=== PATIENT | female | born 1975 | race Caucasian/White ===

== ENCOUNTER 2016-12-14 11:00 | Outpatient (RCR) | payer BC ==
--- NOTE | 2016-12-13 14:16 | Diagnostic Imaging Report ---
KUB. INDICATION: Stones. COMPARISON: 03/02/2016. FINDINGS: There are surgical clips in the upper right abdomen. Moderate amount of fecal material is seen in the right and transverse colon in particular. No definite stone seen along the urinary tract area. IMPRESSION: No definite stone identified. Dictated by: Dictated on workstation # [id number]
[~2016-12-14 11:00] MED LIST: AC500T PO; ACHYD1T PO; ADV1DS; ALBU17AE23 IH; AMOX-355 PO; BUDE6HFA IH; CEPH-507 PO; DCS100C PO; DOCU100C37 PO; FAMO20TA5 PO; FLUT16SP22 NS; HYDR-3720 PO; IBP800T PO; IBUP-1780 PO; MNTL10T; MNTL10T PO; NITR-65 PO; NITR100C3 PO; ONDA-43 PO; ONDA8TAB6 PO; ONDN4T PO; OXYC-465 PO; PHEN-640 PO; PNV1CAPS13 PO; PRD10T PO; PREN-93 PO; SULF1TAB35 PO; TAMS0.4C98 PO
[2016-12-18 20:40] LABS: STONE RISK AMMONIUM 26 mEq/24hr (14-62); STONE RISK BRUSHITE 3.43 (< 2.00); STONE RISK CA OXALATE 1.14 (< 2.00); STONE RISK CALCIUM 167 mg/day (< 250); STONE RISK CITRATE 747 mg/day (> 320); STONE RISK CREATININE 2158 mg/day (600-1800); STONE RISK MAGNESIUM 94 mg/day (> 60); STONE RISK OXALATE 49 mg/day (< 45); STONE RISK PHOSPHOROUS 1801 mg/day (< 1100); STONE RISK POTASSIUM 140 mEq/24hr (19-135); STONE RISK SODIUM 309 mEq/24hr (< 200); STONE RISK SODIUM URATES 7.56 (< 2.00); STONE RISK STRUVITE 9.15 (< 75.00); STONE RISK SULFITE 33 mmol/day (< 30); STONE RISK TOTAL VOLUME 1.84 L/day (> 2.00); STONE RISK URIC ACID 1075 mg/day (< 700); STONE RISK URIC ACID SAT 0.28 (< 2.00)
== END 2017-03-13 | disposition home or self-care (01) ==
LOC: LAB 11:00
PROVIDERS: ATTEND Urology
DX: N20.9 Urinary calculus, unspecified (principal)
CPT/HCPCS: 36415; 74000; 82140; 82340; 82507; 82570; 83735; 83945; 83986; 84105; 84133; 84300; 84392; 84560

== ENCOUNTER 2017-06-18 19:23 | Emergency (ER) | payer BC ==
[~2017-06-18] VITALS: Ht 170.2 cm; Wt 88.6 kg
--- NOTE | 2017-06-18 20:21 | ED Integumentary General ---
General Chief Complaint: Bite-Animal/Human/Insect Stated Complaint: SPIDER BITE Nursing Triage Note: pt states she was camping and noticed pain on her right side of her neck. and she noticed it was a spider that bite her approx. 1700 today. Source: patient Exam Limitations: no limitations History of Present Illness Time seen by provider: 20:08 Initial Comments Here with complaint of spider bite to the right side of the lower neck ST only. She did bring the spider along with her. Denies other injuries. States that she thought that she got stung by a wasp because of the pain. She has not applied anything local and has not taken anything for the pain. This occurred approximately 3 hours ago. Timing/Duration: this evening Severity: moderate Location: torso Possible Cause: insect bite (spider) Associated Symptoms: edema, swelling/mass/lumps Allergies and Home Medications Allergies Coded Allergies: NKANo Known Allergies (Verified Allergy, Unknown, 09/11/13) Home Medications Nitrofurantoin Monohyd/M-Cryst 100 Mg Capsule, 1 TAB PO BID, #14 Prescribed by: FRANKIE BEAL on 02/17/16 1027 Phenazopyridine HCl 200 Mg Tablet, 1 TAB PO TID PRN for PAIN, #21 Prescribed by: FRANKIE BEAL on 02/17/16 1027 Tamsulosin HCl 0.4 Mg Cap, 0.4 MG PO DAILY, #14 Prescribed by: FRANKIE BEAL on 02/17/16 1027 Constitutional: see HPI, No chills, No fever EENTM: no symptoms reported Respiratory: no symptoms reported Cardiovascular: no symptoms reported Gastrointestinal: no symptoms reported Skin: see HPI, change in color, lesions Past Fbdwwoz-Yyzadu-Yekgvl Hx Patient Social History Alcohol Use: Denies Use Recreational Drug Use: No Smoking Status: Never a Smoker 2nd Hand Smoke Exposure: No Recent Foreign Travel: No Contact w/Someone Who Travel: No Recent Infectious Disease Expo: No Recent Hopitalizations: No Immunizations Up To Date Tetanus Booster (TDap): Less than 5yrs Date of Pneumonia Vaccine: Aug 04, 2011 Date of Influenza Vaccine: Sep 28, 2015 Seasonal Allergies Seasonal Allergies: No Surgeries HX Surgeries: Yes (GALLBLADDER REMOVED 2006) Surgeries: Gallbladder Respiratory Hx Respiratory Disorders: Yes Respiratory Disorders: Asthma Cardiovascular Hx Cardiac Disorders: No Neurological Hx Neurological Disorders: No Reproductive System Hx Reproductive Disorders: No Sexually Transmitted Disease: No HIV/AIDS: No Genitourinary Hx Genitourinary Disorders: Yes Genitourinary Disorders: Kidney Stones Gastrointestinal Hx Gastrointestinal Disorders: No Musculoskeletal Hx Musculoskeletal Disorders: No Endocrine Hx Endocrine Disorders: No HEENT HX ENT Disorders: Yes (sesonal allergies, GLASSES) Cancer Hx Cancer: No Psychosocial Hx Psychiatric Problems: No Integumentary HX Skin/Integumentary Disorder: No Blood Transfusions Hx Blood Disorders: No Adverse Reaction to a Blood Tr: No Reviewed Nursing Assessment Reviewed/Agree w Nursing PMH: Yes Family Medical History Family Medial History: Cancer 19 MOTHER Family history: Diabetes mellitus 19 FATHER G8 SISTER Physical Exam Vital Signs Vital Sign - Last 12Hours 06/18/17 20:06 Temp 98.2 Pulse 108 Resp 18 B/P (MAP) 155/89 Pulse Ox 100 O2 Delivery Room Air Capillary Refill : Less Than 3 Seconds General Appearance: WD/WN, no apparent distress Neck: full range of motion, supple Cardiovascular: regular rate, rhythm, no murmur Respiratory: lungs clear, normal breath sounds (her vital signs are all normal. ) Skin: normal color, warm/dry Skin Problem Character: erythema, warm, other (base of the right side of neck posteriorly with a 1 x 2 cm area of induration with a central puncture type wound that is very small.) Progress/Results/Core Measures Results/Orders Vital Signs/I&O Vital Sign - Last 12Hours 06/18/17 20:06 Temp 98.2 Pulse 108 Resp 18 B/P (MAP) 155/89 Pulse Ox 100 O2 Delivery Room Air Blood Pressure Mean: 111 Progress Note : Progress Note Seen and evaluated. Ice pack given. Patient declined pain medicine otherwise. Discharged home with return precautions. Patient verbalize understanding instructions and agreement with plan. Departure Impression Impression: Primary Impression: Spider bite wound Qualified Codes: T63.304A - Toxic effect of unspecified spider venom, undetermined, initial encounter Disposition: HOME, SELF-CARE Condition: Improved Departure-Patient Inst. Decision time for Depature: 20:19 Referrals: MARY SIMENTAL MD (PCP/Family) Primary Care Physician Patient Instructions: Spider Bites Add. Discharge Instructions: All discharge instructions reviewed with patient and/or family. Voiced understanding. You may use hydrocortisone cream over the wound twice daily for the next 2 or 3 days. You may use antibiotic ointment plus pain relief over the wound twice daily for the next few days and then as needed. Use ice packs to affected area to reduce swelling. You may take ibuprofen 800 mg every 8 hours as needed for pain. You may take Tylenol 1000 mg every 8 hours as needed for pain. You may take Benadryl 25 mg every 6 hours as needed for itching or swelling. Follow-up with your Dr. in a few days for recheck. Return for worse pain, fever, vomiting , weakness, breathing problems or other concerns as needed. NAGI WILLIAMSON MD Jun 18, 2017 20:21
[2017-06-18 20:31] VITALS: BP 155/89
== END 2017-06-18 20:31 | disposition home or self-care (01) ==
LOC: EDUNIT# 19:23 → ER 19:26
DX: S10.86XA Insect bite of other specified part of neck, initial encounter (principal); J45.909 Unspecified asthma, uncomplicated; Z90.49 Acquired absence of other specified parts of digestive tract; Z87.442 Personal history of urinary calculi; W57.XXXA Bitten or stung by nonvenomous insect and other nonvenomous arthropods, initial encounter
CPT/HCPCS: 99283

== ENCOUNTER → 2017-12-26 | Outpatient (CLI) | payer BC ==
--- NOTE | 2017-12-26 11:03 | Diagnostic Imaging Report ---
INDICATION: History of kidney stones. TIME OF EXAM: 11:08 a.m. Correlation is made with prior study from 12/13/2016. Surgical clips of right upper quadrant are again noted. The bowel gas pattern is nonobstructed. No definite radiopaque urinary tract calculi are detected. IMPRESSION: Stable abdominal radiographs. No definite radiopaque urinary tract calculi are identified. Dictated by: Dictated on workstation # [id number]
== END ==
LOC: RAD 10:40
PROVIDERS: ATTEND Urology
DX: Z09 Encounter for follow-up examination after completed treatment for conditions other than malignant neoplasm (principal); Z87.442 Personal history of urinary calculi
CPT/HCPCS: 74018

== ENCOUNTER → 2017-12-26 | Outpatient (CLI) | payer BC ==
--- NOTE | 2017-12-26 14:16 | Diagnostic Imaging Report ---
Indication: Routine screening. No prior mammograms are available for comparison. This is a baseline study. The current study was also evaluated with a Computer Aided Detection (CAD) system. Both breasts are primarily involutional. There is a focal density in the superior right breast at mid to posterior depth. Additional views are recommended. Left breast is unremarkable. There are benign calcifications bilaterally. Axillae are unremarkable. IMPRESSION: BI-RADS zero Right breast density. Additional views including spot compression and ML views are recommended for further evaluation. ACR BI-RADS Category 0: Incomplete. (Needs additional imaging evaluation). Result letter will be mailed to the patient. Note: At least 10% of breast cancer is not imaged by mammography. Dictated by: Dictated on workstation # [id number]
== END ==
LOC: RAD 10:33
PROVIDERS: ATTEND Obstetrics & Gynecology
DX: Z12.31 Encounter for screening mammogram for malignant neoplasm of breast (principal)
CPT/HCPCS: 77067

== ENCOUNTER 2017-12-27 15:30 | Outpatient (RCR) | payer BC | END 2018-03-26 | disposition home or self-care (01) | LOC: LAB 15:30 | PROVIDERS: ATTEND Urology | DX: Z09 Encounter for follow-up examination after completed treatment for conditions other than malignant neoplasm (principal); Z87.442 Personal history of urinary calculi | CPT/HCPCS: 36415; 82140; 82340; 82507; 82570; 83735; 83945; 83986; 84105; 84133; 84300; 84392; 84560 ==

== ENCOUNTER → 2018-01-02 | Outpatient (CLI) | payer BC ==
--- NOTE | 2018-01-02 20:38 | Diagnostic Imaging Report ---
EXAMINATION: Unilateral diagnostic right mammogram. The current study was also evaluated with a Computer Aided Detection (CAD) system. INDICATION: Abnormal screening mammogram. FINDINGS: The recent screening mammogram of 12/26/2017 noted a small focal density in the superior aspect of the right breast in the 12 o'clock position at nmk-hq-oteyoezcm depth. Compression and rolled views of this area as well as a true lateral view are obtained. This density seems to persist. In reviewing the tomographic images, there is seem to be two small ( 2-3 MM) densities in this region. These densities have a fairly smooth margin and I suspect that they are benign. Even so, I would recommend that ultrasound be performed for further study. IMPRESSION: Ultrasound will be recommended for further evaluation of the small density in the 12 o'clock position of the right breast. ACR BI-RADS Category 0: Incomplete. (Needs additional imaging evaluation). Result letter will be mailed to the patient. Note: At least 10% of breast cancer is not imaged by mammography. Dictated by: Dictated on workstation # [id number]
--- NOTE | 2018-01-02 20:42 | Diagnostic Imaging Report ---
EXAMINATION: Ultrasound of the right breast, limited. INDICATION: Abnormal mammogram. FINDINGS: The screening mammogram performed on 12/26/2017 noted a small roughly 3 mm focal density in the 12 o'clock position of the right breast. The tomographic images indicated that there were two small (2-3 MM) benign-appearing densities in this region. This finding seemed to persist on the additional mammographic views performed prior to this study. These densities have a generally benign mammographic appearance. On this exam, there is no discrete solid or cystic mass evident in the right breast to correspond to the finding of the mammogram. I do suspect that the mammographic finding is a benign process. Even so, I would recommend that a short-term (six-month) follow-up mammogram of the right breast be obtained for continued evaluation. IMPRESSION: There is no solid mass to suggest malignancy. Recommendations as above. ACR BI-RADS Category 3: Probably benign findings. Dictated by: Dictated on workstation # [id number]
== END ==
LOC: RAD 13:06
PROVIDERS: ATTEND Obstetrics & Gynecology
DX: R92.2 Inconclusive mammogram (principal)

== ENCOUNTER 2018-08-26 13:41 | Outpatient (CLI) | payer BC ==
[~2018-08-26] VITALS: Ht 170.2 cm; Wt 99.4 kg
[2018-08-26] MEDS ORDERED: FLU QUADRIvalent (5+ YOA) 2018-2019 (AFLURIA) 0.5 ML IM ONE (14:45)
[2018-08-26] MEDS ORDERED: LACTATED RINGERS 1,000 ML IV ONE (16:06)
[2018-08-26] MEDS ORDERED: LACTATED RINGERS 1,000 ML IV SCH (17:00)
[2018-08-26 17:14] LABS: BILIRUBIN,URINE NEGATIVE (NEGATIVE); CLARITY,URINE CLEAR; COLOR,URINE YELLOW; GLUCOSE, URINE (UA) NEGATIVE (NEGATIVE); KETONES,URINE NEGATIVE (NEGATIVE); LEUKOCYTE ESTERASE ,URINE NEGATIVE (NEGATIVE); NITRITE,URINE NEGATIVE (NEGATIVE); PH,URINE 7 (5-9); PROTEIN,URINE NEGATIVE (NEGATIVE); UROBILINOGEN,URINE NORMAL (NORMAL)
[2018-08-26 17:20] LABS: BACTERIA,URINE NEGATIVE /HPF
[2018-08-26 17:32] VITALS: BP 133/74
--- NOTE | 2018-08-28 20:52 | Physician Query-Final Dx ---
MAHI TORREZ 08/28/182051: Clinic Account Progress/Dx Physician Query: Please give diagnosis Please provide diagnosis and weeks of gestation. Date of Service Aug 26, 2018 at 13:41 ADAN DÍAZ MD 08/29/18 0739: Clinic Account Progress/Dx DIAGNOSIS: Diagnosis 32 weeks gestation with false labor MAHI TORREZ Aug 28, 2018 20:52 ADAN DÍAZ MD Aug 29, 2018 07:39
== END 2018-08-26 18:45 | disposition home or self-care (01) ==
LOC: WSo 13:41 → LDRP 13:58 → WSo 18:45
PROVIDERS: ATTEND Obstetrics & Gynecology
DX: O47.03 False labor before 37 completed weeks of gestation, third trimester (principal); Z3A.32 32 weeks gestation of pregnancy
CPT/HCPCS: 81000

== ENCOUNTER 2018-09-20 10:42 | Inpatient (IN) | payer BC ==
[~2018-09-20] VITALS: Ht 170.2 cm; Wt 99.1 kg
[2018-09-20 10:36] VITALS: BP 122/87
--- OUTSIDE RECORDS SUMMARY | 2018-09-20 10:47 | XMS REPORT ---
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 Name Role Phone SYED MTZ Unavailable PROBLEMS Unknown Problems ALLERGIES No Known Allergies ENCOUNTERS Encounter Location Date Diagnosis [facility] [id number] [id number] Feb, Dental caries K02.9 [facility] [id number] [id number] Feb, Dental examination Z01.20 IMMUNIZATIONS No Known Immunizations SOCIAL HISTORY Never Assessed REASON FOR VISIT TIFFANY PLAN OF CARE Activity Details Follow Up prn Reason:Extract # 5 # 6 hr needed VITAL SIGNS Blood pressure systolic 148 mmHg 2018-03-14 Blood pressure diastolic 80 mmHg 2018-03-14 MEDICATIONS Medication Instructions Dosage Frequency Start Date End Date Duration Status tylenol Active Multi Complete Active Vitamin D-3 Active Augmentin Active RESULTS No Results PROCEDURES Procedure Date Ordered Result Body Site LTD ORAL EVALUATION - PROBLEM FOCUS March 14, 2018 INTRAORL-PERIAPICAL 1 FILM [id number] March 14, 2018 INSTRUCTIONS MEDICATIONS ADMINISTERED No Known Medications MEDICAL (GENERAL) HISTORY Type Description Date Medical History Pneumonia Medical History Bronchitis Medical History Asthma Surgical History Kidney stones 2016 Surgical History 3 C-Sections /2015 Surgical History gallbladder 2007
--- OUTSIDE RECORDS SUMMARY | 2018-09-20 10:47 | XMS REPORT ---
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 Name Role Phone SYED MTZ Unavailable PROBLEMS Unknown Problems ALLERGIES No Known Allergies ENCOUNTERS Encounter Location Date Diagnosis [facility] [id number] [id number] Feb, Dental caries K02.9 [facility] [id number] [id number] Feb, Dental examination Z01.20 IMMUNIZATIONS No Known Immunizations SOCIAL HISTORY Never Assessed REASON FOR VISIT 1 wk 1 hr te per dds PLAN OF CARE Activity Details Follow Up prn Reason:Hygiene, OZ VITAL SIGNS Blood pressure systolic 148 mmHg 2018-03-24 Blood pressure diastolic 82 mmHg 2018-03-24 MEDICATIONS Medication Instructions Dosage Frequency Start Date End Date Duration Status Vitamin D-3 Active tylenol Not-Taking Multi Complete Active Augmentin Not-Taking RESULTS No Results PROCEDURES Procedure Date Ordered Result Body Site EXTRAC ERUPTED TOOTH/EXPOSED ROOT March 24, 2018 EXTRAC ERUPTED TOOTH/EXPOSED ROOT March 24, 2018 INSTRUCTIONS MEDICATIONS ADMINISTERED No Known Medications MEDICAL (GENERAL) HISTORY Type Description Date Medical History Pneumonia Medical History Bronchitis Medical History Asthma Surgical History Kidney stones 2016 Surgical History 3 C-Sections 2011/2013/2015 Surgical History gallbladder 2007
--- OUTSIDE RECORDS SUMMARY | 2018-09-20 10:49 | XMS REPORT | Continuity of Care Document ---
Author Author [facility] Organization [facility] Address Unknown Phone Unavailable Allergies Active Description Code Type Severity Reaction Onset Reported/Identified Relationship to Patient Clinical Status Yes NKANo Known Allergies NKA Miscellaneous Allergy Unknown N/A 09/11/2013 Medications There is no data. Problems Date Dx Coded Attending Type Code Diagnosis Diagnosed By 06/21/2011 Ot 599.0 URIN TRACT INFECTION NOS 06/21/2011 Ot 789.00 ABDOMINAL PAIN, UNSPECIFIED SITE 07/24/2011 Ot 249.00 SEC DIABETES MELLITUS W/OUT MENTION COMP 07/24/2011 Ot 278.00 OBESITY, NOS 07/24/2011 Ot 480.9 VIRAL PNEUMONIA NOS 07/24/2011 Ot 493.92 ASTHMA, UNSPECIFIED, W (ACUTE) EXACERBAT 07/24/2011 Ot 790.6 ABN BLOOD CHEMISTRY NEC 07/24/2011 Ot E932.0 ADV EFF CORTICOSTEROIDS 07/24/2011 Ot V85.30 BODY MASS INDEX 30.0-30.9, ADULT 11/19/2011 Ot 558.9 NONINF GASTROENTERIT NEC 11/19/2011 Ot 643.03 MILD HYPEREMESIS-ANTEPAR 11/19/2011 Ot 646.83 PREG COMPL NEC-ANTEPART 12/28/2011 Ot 462 ACUTE PHARYNGITIS 12/28/2011 Ot 519.11 ACUTE BRONCHOSPASM 12/28/2011 Ot 643.03 MILD HYPEREMESIS-ANTEPAR 12/28/2011 Ot 648.83 ABN GLUCOSE- ANTEPARTUM 12/28/2011 Ot 648.93 OTH CURR COND-ANTEPARTUM 12/28/2011 Ot 783.21 LOSS OF WEIGHT 12/28/2011 Ot 786.09 RESPIRATORY ABNORM NEC 03/31/2012 Ot 276.51 DEHYDRATION 03/31/2012 Ot 519.11 ACUTE BRONCHOSPASM 03/31/2012 Ot 643.23 LATE VOMIT PREG-ANTEPART 03/31/2012 Ot 648.93 OTH CURR COND-ANTEPARTUM 03/31/2012 Ot 780.4 DIZZINESS AND GIDDINESS 03/31/2012 Ot 783.21 LOSS OF WEIGHT 03/31/2012 Ot 787.91 DIARRHEA 06/21/2012 Ot 643.23 LATE VOMIT PREG-ANTEPART 07/06/2012 Ot 285.1 AC POSTHEMORRHAG ANEMIA 07/06/2012 Ot 648.22 ANEMIA- DELIVERED W P/P 07/06/2012 Ot 653.41 FETOPELV DISPROPOR-DELIV 07/06/2012 Ot 660.11 BONY PELV OBSTRUCT-DELIV 07/06/2012 Ot 660.31 PERSIST OCCIPTPOST-DELIV 07/06/2012 Ot 661.21 UTERINE INERT NEC-DELIV 07/06/2012 Ot V27.0 DELIVER- SINGLE LIVEBORN 07/14/2012 Ot 276.51 DEHYDRATION 07/14/2012 Ot 285.1 AC POSTHEMORRHAG ANEMIA 07/14/2012 Ot 300.00 ANXIETY STATE NOS 07/14/2012 Ot 311 DEPRESSIVE DISORDER NEC 07/14/2012 Ot 564.00 UNSPEC CONSTIPATION 07/14/2012 Ot 648.24 ANEMIA- 07/14/2012 Ot 648.44 MENTAL DISORDER-POSTPART 07/14/2012 Ot 648.94 OTH CURR COND- 09/14/2013 ROSA MAURICIO, GREGORIO Mullins Ot 478.19 OTHER DISEASE OF NASAL CAVITY AND SINUSE 09/14/2013 ROSA MAURICIO, GREGORIO Mullins Ot 493.02 EXTRINSIC ASTHMA, W (ACUTE) EXACERBATION 09/14/2013 ROSA MAURICIO, GREGORIO Mullins Ot 530.81 ESOPHAGEAL REFLUX 09/14/2013 ROSA MAURICIO, GREGORIO Mullins Ot 646.83 PREG COMPL NEC-ANTEPART 09/14/2013 ROSA MAURICIO, GREGORIO Mullins Ot 648.93 OTH CURR COND-ANTEPARTUM 01/26/2014 ROSA MAURICIO, GREGORIO Mullins Ot 646.83 PREG COMPL NEC-ANTEPART 01/26/2014 ROSA MAURICIO, GREGORIO Mullins Ot 789.00 ABDOMINAL PAIN, UNSPECIFIED SITE 04/06/2014 ADAN DÍAZ MD Ot 654.21 PREV DELIVRY W/ OR W/O MENT ANT 04/06/2014 ADAN DÍAZ MD Ot 663.21 CORD COMPRESS NEC-DELIV 04/06/2014 ADAN DÍAZ MD Ot 788.20 RETENTION OF URINE NOS 04/06/2014 ADAN DÍAZ MD Ot V06.1 [id number], COMBINED [ 04/06/2014 BRE MAURICIO, ADAN Granados Ot V27.0 DELIVER-SINGLE LIVEBORN 07/31/2015 ROSA MAURICIO, GREGORIO Mullins Ot 640.93 07/31/2015 ROSA MAURICIO, GREGORIO Mullins Ot 649.63 08/13/2015 Ot 649.63 08/13/2015 Ot 649.63 08/13/2015 ROSA MAURICIO, GREGORIO Mullins Ot 641.03 08/13/2015 BRE MAURICIO, ADAN Granados Ot 654.23 08/13/2015 BRE MAURICIO, ADAN Granados Ot V72.63 08/13/2015 BRE MAURICIO, ADAN Granados Ot V72.84 08/13/2015 BRE MAURICIO, ADAN Granados Ot V74.8 08/13/2015 ROSA MAURICIO, GREGORIO Mullins Ot 640.93 08/13/2015 ROSA MAURICIO, GREGORIO Mullins Ot 649.63 08/15/2015 ROSA MAURICIO, GREGORIO Mullins Ot 643.13 HYPEREM W METAB-ANTEPART 08/15/2015 ROSA MAURICIO, GREGORIO Mullins Ot 646.83 PREG COMPL NEC-ANTEPART 08/15/2015 ROSA MAURICIO, GREGORIO Mullins Ot 787.91 DIARRHEA 08/15/2015 ROSA MAURICIO, GREGORIO Mullins Ot 643.13 08/15/2015 ROSA MAURICIO, GREGORIO Mullins Ot 646.83 08/15/2015 ROSA MAURICIO, GREGORIO Mullins Ot 787.91 09/24/2015 Ot Z34.92 09/28/2015 Ot 649.63 09/28/2015 Ot 649.63 09/28/2015 ROSA MAURICIO, GREGORIO Mullins Ot 641.03 09/28/2015 ADAN DÍAZ MD Ot 654.23 09/28/2015 ADAN DÍAZ MD Ot V72.63 09/28/2015 ADAN DÍAZ MD Ot V72.84 09/28/2015 ADAN DÍAZ MD Ot V74.8 09/28/2015 ROSA MAURICIO, GREGORIO Mullins Ot 640.93 09/28/2015 ROSA MAURICIO, GREGORIO Mullins Ot 649.63 09/28/2015 Ot Z34.92 10/07/2015 ROSA MAURICIO, GREGORIO Mullins Ot O28.9 10/15/2015 ROSA MAURICIO, GREGORIO Mullins Ot O28.9 12/02/2015 GREGORIO LEE MD Ot Z36 12/09/2015 Ot 649.63 12/09/2015 Ot 649.63 12/09/2015 GREGORIO LEE MD Ot 641.03 12/09/2015 BRE MAURICIO, ADAN Roberta Ot 654.23 12/09/2015 BRE MAURICIO, ADAN Roberta Ot V72.63 12/09/2015 BRE MAURICIO, ADAN Roberta Ot V72.84 12/09/2015 BRE MAURICIO, ADAN Roberta Ot V74.8 12/09/2015 GREGORIO LEE MD Ot 640.93 12/09/2015 GREGORIO LEE MD Ot 649.63 12/09/2015 Ot Z34.92 12/09/2015 GREGORIO LEE MD Ot O28.9 12/09/2015 GREGORIO LEE MD Ot Z36 12/09/2015 GREGORIO LEE MD Ot N21.1 CALCULUS IN URETHRA 12/09/2015 GREGORIO LEE MD Ot O99.89 OTH DISEASES AND CONDITIONS COMPL PREG/C 12/09/2015 GREGORIO LEE MD Ot Z3A.32 32 WEEKS GESTATION OF 01/23/2016 GREGORIO LEE MD Ot N20.2 CALCULUS OF KIDNEY WITH CALCULUS OF URET 01/23/2016 GREGORIO LEE MD Ot 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, THIRD T 01/23/2016 GREGORIO LEE MD Ot O34.21 MATERNAL CARE FOR SCAR FROM PREVIOUS MARIKA 01/23/2016 GREGORIO LEE MD Ot Z37.0 SINGLE LIVE 01/23/2016 GREGORIO LEE MD Ot Z3A.38 38 WEEKS GESTATION OF 01/28/2016 JOSUÉ MAURICIO, SCOTTIE Bolden Ot N20.1 CALCULUS OF URETER 01/28/2016 SCOTTIE MOSES MD Ot Z11.2 ENCOUNTER FOR SCREENING FOR OTHER BACTER 02/03/2016 GREGORIO LEE MD Ot N20.2 02/03/2016 GREGORIO LEE MD Ot O26.833 02/03/2016 GREGORIO LEE MD Ot O34.21 02/03/2016 GREGORIO LEE MD Ot Z37.0 02/03/2016 GREGORIO LEE MD Ot Z3A.38 02/11/2016 Ot 649.63 02/11/2016 Ot 649.63 02/11/2016 ROSA MAURICIO, GREGORIO Mullins Ot 641.03 02/11/2016 BRE MAURICIO, ADAN G Ot 654.23 02/11/2016 BRE MAURICIO, ADAN Roberta Ot V72.63 02/11/2016 BRE MAURICIO, ADAN Roberta Ot V72.84 02/11/2016 BRE MAURICIO, ADAN Roberta Ot V74.8 02/11/2016 ROSA MAURICIO, GREGORIO Harpreet Ot 640.93 02/11/2016 ROSA MAURICIO, [facility] Ot 649.63 02/11/2016 Ot Z34.92 02/11/2016 ROSA MAURICIO, [facility] Ot O28.9 02/11/2016 ROSA MAURICIO, GREGORIO Mullins Ot Z36 02/11/2016 JOSUÉ MAURICIO, SCOTTIE A Ot N20.2 02/11/2016 JOSUÉ MAURICIO, SCOTTIE Kimi Ot Z01.818 02/12/2016 ROSA MAURICIO, GREGORIO Mullins Ot Z39.1 02/12/2016 JOSUÉ MAURICIO, SCOTTIE A Ot N20.1 02/12/2016 ROSA MAURICIO, GREGORIO Mullins Ot Z39.1 02/12/2016 ROSA MAURICIO, GREGORIO Mullins Ot Z39.1 02/17/2016 JOSUÉ MAURICIO, SCOTTIE A Ot N20.1 CALCULUS OF URETER 02/17/2016 JOSUÉ MAURICIO, SCOTTIE A Ot N20.1 02/17/2016 JOSUÉ MAURICIO, SCOTTIE A Ot Z01.818 02/18/2016 JOSUÉ MAURICIO, SCOTTIE A Ot N20.1 02/25/2016 ROSA MAURICIO, GREGORIO Mullins Ot Z39.1 02/25/2016 JOSUÉ MAURICIO, SCOTTIE A Ot N20.1 03/02/2016 JOSUÉ MAURICIO, SCOTTIE A Ot N20.1 03/17/2016 JOSUÉ MAURICIO, SCOTTIE Bolden Ot N20.1 CALCULUS OF URETER 09/10/2016 Ot 649.63 UTERINE SIZE DATE DISCREPANCY, ANTEPARTU 09/10/2016 Ot 649.63 UTERINE SIZE DATE DISCREPANCY, ANTEPARTU 09/10/2016 ROSA MAURICIO, GREGORIO Mullins Ot 641.03 PLACENTA PREVIA-ANTEPART 09/10/2016 ADAN DÍAZ MD Ot 654.23 PREV DELIVERY, ANTEPARTUM COND 09/10/2016 ADAN DÍAZ MD, Ot V72.63 PRE-PROCEDURAL LABORATORY EXAMINATION 09/10/2016 ADAN DÍAZ MD, Ot V72.84 EXAM PRE-OPERATIVE NOS 09/10/2016 ADAN DÍAZ MD, Ot V74.8 SCREEN-BACTERIAL DIS NEC 09/10/2016 GREGORIO LEE MD Ot 640.93 HEM EARLY PREG-ANTEPART 09/10/2016 GREGORIO LEE MD Ot 649.63 UTERINE SIZE DATE DISCREPANCY, ANTEPARTU 09/10/2016 Ot Z34.92 ENCNTR FOR SUPRVSN OF NORMAL PREG, UNSP, 09/10/2016 GREGORIO LEE MD Ot O28.9 UNSP ABNORMAL FINDINGS ON SCRE 09/10/2016 GREGORIO LEE MD Ot Z36 ENCOUNTER FOR SCREENING OF MOT 09/10/2016 SCOTTIE MOSES MD Ot N20.2 CALCULUS OF KIDNEY WITH CALCULUS OF URET 09/10/2016 SCOTTIE MOSES MD Ot Z01.818 ENCOUNTER FOR OTHER PREPROCEDURAL EXAMIN 09/10/2016 GREGORIO LEE MD Ot Z39.1 ENCOUNTER FOR CARE AND EXAMINATION OF LA 09/10/2016 SCOTTIE MOSES MD Ot N20.1 CALCULUS OF URETER 01/12/2017 SCOTTIE MOSES MD Ot N20.9 URINARY CALCULUS, UNSPECIFIED 03/13/2017 SCOTTIE MOSES MD Ot N20.9 URINARY CALCULUS, UNSPECIFIED 06/18/2017 Ot 649.63 UTERINE SIZE DATE DISCREPANCY, ANTEPARTU 06/18/2017 GREGORIO LEE MD Ot 641.03 PLACENTA PREVIA-ANTEPART 06/18/2017 ADAN DÍAZ MD Ot 654.23 PREV DELIVERY, ANTEPARTUM COND 06/18/2017 ADAN DÍAZ MD, Ot V72.63 PRE-PROCEDURAL LABORATORY EXAMINATION 06/18/2017 ADAN DÍAZ MD, Ot V72.84 EXAM PRE-OPERATIVE NOS 06/18/2017 ADAN DÍAZ MD, Ot V74.8 SCREEN-BACTERIAL DIS NEC 06/18/2017 GREGORIO LEE MD Ot 640.93 HEM EARLY PREG-ANTEPART 06/18/2017 ROSA MAURICIO, GREGORIO Mullins Ot 649.63 UTERINE SIZE DATE DISCREPANCY, ANTEPARTU 06/18/2017 Ot Z34.92 ENCNTR FOR SUPRVSN OF NORMAL PREG, UNSP, 06/18/2017 GREGORIO LEE MD Ot O28.9 UNSP ABNORMAL FINDINGS ON SCRE 06/18/2017 GREGORIO LEE MD Ot Z36 ENCOUNTER FOR SCREENING OF MOT 06/18/2017 SCOTTIE MOSES MD Ot N20.2 CALCULUS OF KIDNEY WITH CALCULUS OF URET 06/18/2017 SCOTTIE MOSES MD Ot Z01.818 ENCOUNTER FOR OTHER PREPROCEDURAL EXAMIN 06/18/2017 GREGORIO LEE MD Ot Z39.1 ENCOUNTER FOR CARE AND EXAMINATION OF LA 06/18/2017 SCOTTIE MOSES MD Ot N20.1 CALCULUS OF URETER 06/18/2017 SCOTTIE MOSES MD Ot N20.1 CALCULUS OF URETER 06/18/2017 SCOTTIE MOSES MD Ot Z01.818 ENCOUNTER FOR OTHER PREPROCEDURAL EXAMIN 06/18/2017 SCOTTIE MOSES MD, Ot N20.1 CALCULUS OF URETER 06/18/2017 CLAY MAURICIO, NAGI Pruitt Ot J45.909 UNSPECIFIED ASTHMA, UNCOMPLICATED 06/18/2017 NAGI WILLIAMSON MD Ot S10.86XA INSECT BITE OF OTHER SPECIFIED PART OF N 06/18/2017 NAGI WILLIAMSON MD Ot W57.XXXA BIT/STUNG BY NONVENOM INSECT OTH NONVE 06/18/2017 NAGI WILLIAMSON MD Ot Z87.442 PERSONAL HISTORY OF URINARY CALCULI 06/18/2017 NAGI WILLIAMSON MD Ot Z90.49 ACQUIRED ABSENCE OF OTHER SPECIFIED PART 06/20/2017 Ot 649.63 UTERINE SIZE DATE DISCREPANCY, ANTEPARTU 06/20/2017 ROSA MAURICIO, GREGORIO Mullins Ot 641.03 PLACENTA PREVIA-ANTEPART 06/20/2017 ADAN DÍAZ MD Ot 654.23 PREV DELIVERY, ANTEPARTUM COND 06/20/2017 ADAN DÍAZ MD Ot V72.63 PRE-PROCEDURAL LABORATORY EXAMINATION 06/20/2017 ADAN DÍAZ MD, Ot V72.84 EXAM PRE-OPERATIVE NOS 06/20/2017 ADAN DÍAZ MD, Ot V74.8 SCREEN-BACTERIAL DIS NEC 06/20/2017 GREGORIO LEE MD Ot 640.93 HEM EARLY PREG-ANTEPART 06/20/2017 GREGORIO LEE MD Ot 649.63 UTERINE SIZE DATE DISCREPANCY, ANTEPARTU 06/20/2017 Ot Z34.92 ENCNTR FOR SUPRVSN OF NORMAL PREG, UNSP, 06/20/2017 GREGORIO LEE MD Ot O28.9 UNSP ABNORMAL FINDINGS ON SCRE 06/20/2017 GREGORIO LEE MD Ot Z36 ENCOUNTER FOR SCREENING OF MOT 06/20/2017 SCOTTIE MOSES MD Ot N20.2 CALCULUS OF KIDNEY WITH CALCULUS OF URET 06/20/2017 SCOTTIE MOSES MD Ot Z01.818 ENCOUNTER FOR OTHER PREPROCEDURAL EXAMIN 06/20/2017 GREGORIO LEE MD Ot Z39.1 ENCOUNTER FOR CARE AND EXAMINATION OF LA 06/20/2017 SCOTTIE MOSES MD Ot N20.1 CALCULUS OF URETER 06/20/2017 SCOTTIE MOSES MD Ot N20.1 CALCULUS OF URETER 06/20/2017 SCOTTIE MOSES MD Ot Z01.818 ENCOUNTER FOR OTHER PREPROCEDURAL EXAMIN 06/20/2017 SCOTTIE MOSES MD Ot N20.1 CALCULUS OF URETER 12/27/2017 SCOTTIE MOSES MD Ot Z09 ENCNTR FOR F/U EXAM AFT TRTMT FOR COND O 12/27/2017 SCOTTIE MOSES MD Ot Z87.442 PERSONAL HISTORY OF URINARY CALCULI 12/27/2017 ADAN DÍAZ MD Ot Z12.31 ENCNTR SCREEN MAMMOGRAM FOR MALIGNANT NE 01/03/2018 ADAN DÍAZ MD Ot R92.2 INCONCLUSIVE MAMMOGRAM 01/03/2018 ADAN DÍAZ MD Ot R92.2 INCONCLUSIVE MAMMOGRAM 01/11/2018 ADAN DÍAZ MD Ot Z12.31 ENCNTR SCREEN MAMMOGRAM FOR MALIGNANT NE 01/11/2018 SCOTTIE MOSES MD Ot Z09 ENCNTR FOR F/U EXAM AFT TRTMT FOR COND O 01/11/2018 SCOTTIE MOSES MD, Ot Z87.442 PERSONAL HISTORY OF URINARY CALCULI 01/11/2018 SCOTTIE MOSES MD, Ot Z87.442 PERSONAL HISTORY OF URINARY CALCULI 01/18/2018 ADAN DÍAZ MD, Ot R92.2 INCONCLUSIVE MAMMOGRAM 01/24/2018 ROSA MAURICIO, GREGORIO Mullins Ot 641.03 PLACENTA PREVIA-ANTEPART 01/24/2018 ADAN DÍAZ MD Ot 654.23 PREV DELIVERY, ANTEPARTUM COND 01/24/2018 ADAN DÍAZ MD, Ot V72.63 PRE-PROCEDURAL LABORATORY EXAMINATION 01/24/2018 ADAN DÍAZ MD, Ot V72.84 EXAM PRE-OPERATIVE NOS 01/24/2018 ADAN DÍAZ MD, Ot V74.8 SCREEN-BACTERIAL DIS NEC 01/24/2018 ROSA MAURICIO, GREGORIO Mullins Ot 640.93 HEM EARLY PREG-ANTEPART 01/24/2018 ROSA MAURICIO, GREGORIO Mullins Ot 649.63 UTERINE SIZE DATE DISCREPANCY, ANTEPARTU 01/24/2018 Ot Z34.92 ENCNTR FOR SUPRVSN OF NORMAL PREG, UNSP, 01/24/2018 ROSA MAURICIO, GREGORIO Mullins Ot O28.9 UNSP ABNORMAL FINDINGS ON SCRE 01/24/2018 ROSA MAURICIO, GREGORIO Mullins Ot Z36 ENCOUNTER FOR SCREENING OF MOT 01/24/2018 SCOTTIE MOSES MD Ot N20.2 CALCULUS OF KIDNEY WITH CALCULUS OF URET 01/24/2018 SCOTTIE MOSES MD Ot Z01.818 ENCOUNTER FOR OTHER PREPROCEDURAL EXAMIN 01/24/2018 GREGORIO LEE MD Ot Z39.1 ENCOUNTER FOR CARE AND EXAMINATION OF LA 01/24/2018 SCOTTIE MOSES MD Ot N20.1 CALCULUS OF URETER 01/24/2018 SCOTTIE MOSES MD, Ot N20.1 CALCULUS OF URETER 01/24/2018 SCOTTIE MOSES MD Ot Z01.818 ENCOUNTER FOR OTHER PREPROCEDURAL EXAMIN 01/24/2018 SCOTTIE MOSES MD Ot N20.1 CALCULUS OF URETER 01/24/2018 ADAN DÍAZ MD, Ot Z12.31 ENCNTR SCREEN MAMMOGRAM FOR MALIGNANT NE 01/24/2018 SCOTTIE MOSES MD Ot Z87.442 PERSONAL HISTORY OF URINARY CALCULI 01/24/2018 SCOTTIE MOSES MD, Ot Z09 ENCNTR FOR F/U EXAM AFT TRTMT FOR COND O 01/24/2018 SCOTTIE MOSES MD, Ot Z87.442 PERSONAL HISTORY OF URINARY CALCULI 01/24/2018 ADAN DÍAZ MD, Ot R92.2 INCONCLUSIVE MAMMOGRAM 01/26/2018 ROSA MAURICIO, GREGORIO Mullins Ot 641.03 PLACENTA PREVIA-ANTEPART 01/26/2018 ADAN DÍAZ MD Ot 654.23 PREV DELIVERY, ANTEPARTUM COND 01/26/2018 ADAN DÍAZ MD, Ot V72.63 PRE-PROCEDURAL LABORATORY EXAMINATION 01/26/2018 ADAN DÍAZ MD, Ot V72.84 EXAM PRE-OPERATIVE NOS 01/26/2018 ADAN DÍAZ MD, Ot V74.8 SCREEN-BACTERIAL DIS NEC 01/26/2018 ROSA MAURICIO, GREGORIO Mullins Ot 640.93 HEM EARLY PREG-ANTEPART 01/26/2018 ROSA MAURICIO, GREGORIO Mullins Ot 649.63 UTERINE SIZE DATE DISCREPANCY, ANTEPARTU 01/26/2018 Ot Z34.92 ENCNTR FOR SUPRVSN OF NORMAL PREG, UNSP, 01/26/2018 ROSA MAURICIO, GREGORIO Mullins Ot O28.9 UNSP ABNORMAL FINDINGS ON SCRE 01/26/2018 ROSA MAURICIO, GREGORIO Mullins Ot Z36 ENCOUNTER FOR SCREENING OF MOT 01/26/2018 SCOTTIE MOSES MD Ot N20.2 CALCULUS OF KIDNEY WITH CALCULUS OF URET 01/26/2018 SCOTTIE MOSES MD Ot Z01.818 ENCOUNTER FOR OTHER PREPROCEDURAL EXAMIN 01/26/2018 GREGORIO LEE MD Ot Z39.1 ENCOUNTER FOR CARE AND EXAMINATION OF LA 01/26/2018 SCOTTIE MOSES MD Ot N20.1 CALCULUS OF URETER 01/26/2018 SCOTTIE MOSES MD Ot N20.1 CALCULUS OF URETER 01/26/2018 SCOTTIE MOSES MD Ot Z01.818 ENCOUNTER FOR OTHER PREPROCEDURAL EXAMIN 01/26/2018 SCOTTIE MOSES MD, Ot N20.1 CALCULUS OF URETER 01/26/2018 ADAN DÍAZ MD Ot Z12.31 ENCNTR SCREEN MAMMOGRAM FOR MALIGNANT NE 01/26/2018 SCOTTIE MOSES MD, Ot Z87.442 PERSONAL HISTORY OF URINARY CALCULI 01/26/2018 SCOTTIE MOSES MD, Ot Z09 ENCNTR FOR F/U EXAM AFT TRTMT FOR COND O 01/26/2018 SCOTTIE MOSES MD, Ot Z87.442 PERSONAL HISTORY OF URINARY CALCULI 01/26/2018 ADAN DÍAZ MD, Ot R92.2 INCONCLUSIVE MAMMOGRAM 01/27/2018 ROSA MAURICIO, GREGORIO Mullins Ot 641.03 PLACENTA PREVIA-ANTEPART 01/27/2018 ADAN DÍAZ MD Ot 654.23 PREV DELIVERY, ANTEPARTUM COND 01/27/2018 ADAN DÍAZ MD Ot V72.63 PRE-PROCEDURAL LABORATORY EXAMINATION 01/27/2018 ADAN DÍAZ MD Ot V72.84 EXAM PRE-OPERATIVE NOS 01/27/2018 ADAN DÍAZ MD Ot V74.8 SCREEN-BACTERIAL DIS NEC 01/27/2018 ROSA MAURICIO, GREGORIO Mullins Ot 640.93 HEM EARLY PREG-ANTEPART 01/27/2018 GREGORIO LEE MD Ot 649.63 UTERINE SIZE DATE DISCREPANCY, ANTEPARTU 01/27/2018 Ot Z34.92 ENCNTR FOR SUPRVSN OF NORMAL PREG, UNSP, 01/27/2018 ROSA MAURICIO, GREGORIO Mullins Ot O28.9 UNSP ABNORMAL FINDINGS ON SCRE 01/27/2018 ROSA MAURICIO, GREGORIO Mullins Ot Z36 ENCOUNTER FOR SCREENING OF MOT 01/27/2018 SCOTTIE MOSES MD Ot N20.2 CALCULUS OF KIDNEY WITH CALCULUS OF URET 01/27/2018 SCOTTIE MOSES MD Ot Z01.818 ENCOUNTER FOR OTHER PREPROCEDURAL EXAMIN 01/27/2018 GREGORIO LEE MD Ot Z39.1 ENCOUNTER FOR CARE AND EXAMINATION OF LA 01/27/2018 SCOTTIE MOSES MD, Ot N20.1 CALCULUS OF URETER 01/27/2018 SCOTTIE MOSES MD, Ot N20.1 CALCULUS OF URETER 01/27/2018 SCOTTIE MOSES MD, Ot Z01.818 ENCOUNTER FOR OTHER PREPROCEDURAL EXAMIN 01/27/2018 SCOTTIE MOSES MD, Ot N20.1 CALCULUS OF URETER 01/27/2018 ADAN DÍAZ MD, Ot Z12.31 ENCNTR SCREEN MAMMOGRAM FOR MALIGNANT NE 01/27/2018 SCOTTIE MOSSE MD, Ot Z87.442 PERSONAL HISTORY OF URINARY CALCULI 01/27/2018 SCOTTIE MOSES MD, Ot Z09 ENCNTR FOR F/U EXAM AFT TRTMT FOR COND O 01/27/2018 SCOTTIE MOSES MD, Ot Z87.442 PERSONAL HISTORY OF URINARY CALCULI 01/27/2018 ADAN DÍAZ MD, Ot R92.2 INCONCLUSIVE MAMMOGRAM 02/25/2018 ROSA MAURICIO, GREGORIO Mullins Ot 641.03 PLACENTA PREVIA-ANTEPART 02/25/2018 ADAN DÍAZ MD Ot 654.23 PREV DELIVERY, ANTEPARTUM COND 02/25/2018 ADAN DÍAZ MD Ot V72.63 PRE-PROCEDURAL LABORATORY EXAMINATION 02/25/2018 ADAN DÍAZ MD, Ot V72.84 EXAM PRE-OPERATIVE NOS 02/25/2018 ADAN DÍAZ MD, Ot V74.8 SCREEN-BACTERIAL DIS NEC 02/25/2018 ROSA MAURICIO, GREGORIO Mullins Ot 640.93 HEM EARLY PREG-ANTEPART 02/25/2018 GREGORIO LEE MD Ot 649.63 UTERINE SIZE DATE DISCREPANCY, ANTEPARTU 02/25/2018 Ot Z34.92 ENCNTR FOR SUPRVSN OF NORMAL PREG, UNSP, 02/25/2018 GREGORIO LEE MD Ot O28.9 UNSP ABNORMAL FINDINGS ON SCRE 02/25/2018 GREGORIO LEE MD Ot Z36 ENCOUNTER FOR SCREENING OF MOT 02/25/2018 SCOTTIE MOSES MD, Ot N20.2 CALCULUS OF KIDNEY WITH CALCULUS OF URET 02/25/2018 SCOTTIE MOSES MD, Ot Z01.818 ENCOUNTER FOR OTHER PREPROCEDURAL EXAMIN 02/25/2018 GREGORIO LEE MD Ot Z39.1 ENCOUNTER FOR CARE AND EXAMINATION OF LA 02/25/2018 SCOTTIE MOSES MD Ot N20.1 CALCULUS OF URETER 02/25/2018 SCOTTIE MOSES MD, Ot N20.1 CALCULUS OF URETER 02/25/2018 SCOTTIE MOSES MD, Ot Z01.818 ENCOUNTER FOR OTHER PREPROCEDURAL EXAMIN 02/25/2018 SCOTTIE MOSES MD, Ot N20.1 CALCULUS OF URETER 02/25/2018 ADAN DÍAZ MD, Ot Z12.31 ENCNTR SCREEN MAMMOGRAM FOR MALIGNANT NE 02/25/2018 SCOTTIE MOSES MD, Ot Z87.442 PERSONAL HISTORY OF URINARY CALCULI 02/25/2018 SCOTTIE MOSES MD Ot Z09 ENCNTR FOR F/U EXAM AFT TRTMT FOR COND O 02/25/2018 SCOTTIE MOSES MD, Ot Z87.442 PERSONAL HISTORY OF URINARY CALCULI 02/25/2018 ADAN DÍAZ MD, Ot R92.2 INCONCLUSIVE MAMMOGRAM 03/26/2018 SCOTTIE MOSES MD Ot Z09 ENCNTR FOR F/U EXAM AFT TRTMT FOR COND O 03/26/2018 SCOTTIE MOSES MD, Ot Z87.442 PERSONAL HISTORY OF URINARY CALCULI 03/27/2018 SCOTTIE MOSES MD Ot Z09 ENCNTR FOR F/U EXAM AFT TRTMT FOR COND O 03/27/2018 SCOTTIE MOSES MD, Ot Z87.442 PERSONAL HISTORY OF URINARY CALCULI 06/10/2018 ROSA MAURICIO, GREGORIO Mullins Ot 641.03 PLACENTA PREVIA-ANTEPART 06/10/2018 ADAN DÍAZ MD Ot 654.23 PREV DELIVERY, ANTEPARTUM COND 06/10/2018 ADAN DÍAZ MD, Ot V72.63 PRE-PROCEDURAL LABORATORY EXAMINATION 06/10/2018 ADAN DÍAZ MD, Ot V72.84 EXAM PRE-OPERATIVE NOS 06/10/2018 ADAN DÍAZ MD, Ot V74.8 SCREEN-BACTERIAL DIS NEC 06/10/2018 ROSA MAURICIO, GREGORIO Mullins Ot 640.93 HEM EARLY PREG-ANTEPART 06/10/2018 GREGORIO LEE MD, Ot 649.63 UTERINE SIZE DATE DISCREPANCY, ANTEPARTU 06/10/2018 Ot Z34.92 ENCNTR FOR SUPRVSN OF NORMAL PREG, UNSP, 06/10/2018 GREGORIO LEE MD Ot O28.9 UNSP ABNORMAL FINDINGS ON SCRE 06/10/2018 GREGORIO LEE MD Ot Z36 ENCOUNTER FOR SCREENING OF MOT 06/10/2018 SCOTTIE MOSES MD Ot N20.2 CALCULUS OF KIDNEY WITH CALCULUS OF URET 06/10/2018 SCOTTIE MOSES MD Ot Z01.818 ENCOUNTER FOR OTHER PREPROCEDURAL EXAMIN 06/10/2018 GREGORIO LEE MD Ot Z39.1 ENCOUNTER FOR CARE AND EXAMINATION OF [place] 06/10/2018 SCOTTIE MOSES MD Ot N20.1 CALCULUS OF URETER 06/10/2018 SCOTTIE MOSES MD, Ot N20.1 CALCULUS OF URETER 06/10/2018 SCOTTIE MOSES MD Ot Z01.818 ENCOUNTER FOR OTHER PREPROCEDURAL EXAMIN 06/10/2018 SCOTTIE MOSES MD, Ot N20.1 CALCULUS OF URETER 06/10/2018 ADAN DÍAZ MD, Ot Z12.31 ENCNTR SCREEN MAMMOGRAM FOR MALIGNANT NE 06/10/2018 SCOTTIE MOSES MD, Ot Z09 ENCNTR FOR F/U EXAM AFT TRTMT FOR COND O 06/10/2018 SCOTTIE MOSES MD, Ot Z87.442 PERSONAL HISTORY OF URINARY CALCULI 06/10/2018 ADAN DÍAZ MD, Ot R92.2 INCONCLUSIVE MAMMOGRAM 06/10/2018 SCOTTIE MOSES MD, Ot Z87.442 PERSONAL HISTORY OF URINARY CALCULI 08/26/2018 ADAN DÍAZ MD, Ot O47.03 FALSE LABOR BEFORE 37 COMPLETED WEEKS OF 08/26/2018 ADAN DÍAZ MD, Ot Z3A.32 32 WEEKS GESTATION OF 2018 ADAN DÍAZ MD, Ot O47.03 FALSE LABOR BEFORE 37 COMPLETED WEEKS OF 2018 ADAN DÍAZ MD, Ot Z3A.32 32 WEEKS GESTATION OF Procedures Code Description Performed By Performed On 96.49 OTHER INSTILLATION 07/02/2012 74.1 LOW CERVICAL 07/03/2012 72.9 INSTRUMENT DELIVERY NOS 04/03/2014 74.1 LOW CERVICAL 04/03/2014 [id number] EXTRACTION OF POC, LOW CERVICAL, OPEN AP 01/21/2016 [id number] INSPECTION OF URETER, ENDO 01/22/2016 Results Test Result Range CD3+CD4+ (T4 helper) cells/100 cells in blood - 12/14/16 11:35 Timed urine calcium measurement (mass/volume) 167 % < 250 Urine oxalate detection 49 < 45 Urine uric acid measurement (mass/volume) 1075 % < 700 Urine citrate measurement (mass/volume) 747 % > 320 Urine pH measurement 7.0 5.5-7.0 24 hour urine specimen volume measurement 1.84 % > 2.00 Sodium urate/total calculus mass ratio by infrared spectroscopy 309 % < 200 Sulfites [presence] in urine by test strip 33 < 30 Urine phosphate measurement (mass/volume) 1801 % < 1100 Urine magnesium measurement (mass/volume) 94 % > 60 Urine calcium oxalate measurement 1.14 < 2.00 Urine calcium phosphate crystals detection by computer assisted method 3.43 < 2.00 24 hour urine sodium urate (saturation fraction) 7.56 < 2.00 Triple phosphate crystals detection in urine sediment by light microscopy 9.15 < 75.00 24 hour urine uric acid (saturation fraction) 0.28 < 2.00 Urine ammonium measurement 26 % 14-62 Urine potassium measurement 140 % 19-135 24 hour urine creatinine measurement (mass/time) 2158 % 600-1800 Clinical automation lead review of results See Below NRG CD3+CD4+ (T4 helper) cells/100 cells in blood - 12/27/17 15:31 Timed urine calcium measurement (mass/volume) 386 % < 250 Urine oxalate detection 50 < 45 Urine uric acid measurement (mass/volume) 884 % < 700 Urine citrate measurement (mass/volume) 799 % > 320 Urine pH measurement 7.3 5.5-7.0 24 hour urine specimen volume measurement 3.06 % > 2.00 Sodium urate/total calculus mass ratio by infrared spectroscopy 429 % < 200 Sulfites [presence] in urine by test strip 16 < 30 Urine phosphate measurement (mass/volume) 1337 % < 1100 Urine magnesium measurement (mass/volume) 143 % > 60 Urine calcium oxalate measurement 1.51 < 2.00 Urine calcium phosphate crystals detection by computer assisted method 4.17 < 2.00 24 hour urine sodium urate (saturation fraction) 3.39 < 2.00 Triple phosphate crystals detection in urine sediment by light microscopy 10.72 < 75.00 24 hour urine uric acid (saturation fraction) 0.07 < 2.00 Urine ammonium measurement 29 % 14-62 Urine potassium measurement 79 % 19-135 24 hour urine creatinine measurement (mass/time) 2035 % 600-1800 Clinical automation lead review of results See Below NRG Complete urinalysis with reflex to culture - 08/26/18 16:40 Urine color determination YELLOW NRG Urine clarity determination CLEAR NRG Urine pH measurement by test strip 7 5-9 Specific gravity of urine by test strip 1.010 1.016- 1.022 Urine protein assay by test strip, semi-quantitative NEGATIVE NEGATIVE Urine glucose detection by automated test strip NEGATIVE NEGATIVE Erythrocytes detection in urine sediment by light microscopy 4+ NEGATIVE Urine ketones detection by automated test strip NEGATIVE NEGATIVE Urine nitrite detection by test strip NEGATIVE NEGATIVE Urine total bilirubin detection by test strip NEGATIVE NEGATIVE Urine urobilinogen measurement by automated test strip (mass/volume) NORMAL NORMAL Urine leukocyte esterase detection by dipstick NEGATIVE NEGATIVE Automated urine sediment erythrocyte count by microscopy (number/high power field) [HPF] NRG Automated urine sediment leukocyte count by microscopy (number/high power field ) NONE NRG Bacteria detection in urine sediment by light microscopy NEGATIVE NRG Squamous epithelial cells detection in urine sediment by light microscopy NONE NRG Crystals detection in urine sediment by light microscopy NONE NRG Casts detection in urine sediment by light microscopy NONE NRG Mucus detection in urine sediment by light microscopy NEGATIVE NRG Complete urinalysis with reflex to culture NO NRG Encounters ACCT No. Visit Date/Time Discharge Status Pt. Type Provider Facility Loc./Unit Complaint [id number] 08/26/2018 13:41:00 08/26/2018 18:45:00 DIS Outpatient ADAN DÍAZ MD [facility] WSo SPOTTING [id number] 03/27/2018 00:10:00 03/27/2018 23:59:59 CLS Preadmit SCOTTIE MOSES MD [facility] LAB H/O STONES [id number] 12/27/2017 15:30:00 03/26/2018 00:01:00 DIS Outpatient SCOTTIE MOSES MD [facility] LAB H/O STONES [id number] 01/02/2018 13:06:00 01/02/2018 23:59:59 CLS Outpatient ADAN DÍAZ MD [facility] RAD ABN MAMMO [id number] 12/26/2017 10:40:00 12/26/2017 23:59:59 CLS Outpatient SCOTTIE MOSES MD [facility] RAD H/O STONE [id number] 12/26/2017 10:33:00 12/26/2017 23:59:59 CLS Outpatient ADAN DÍAZ MD [facility] RAD ROUTINE SCREENING [id number] 06/18/2017 19:26:00 06/18/2017 20:31:00 DIS Emergency NAGI WILLIAMSON MD [facility] ER SPIDER BITE [id number] 03/14/2017 00:13:00 03/14/2017 23:59:59 CLS Preadmit SCOTTIE MOSES MD [facility] LAB STONES [id number] 12/14/2016 11:00:00 03/13/2017 00:01:00 DIS Outpatient SCOTTIE MOSES MD [facility] LAB STONES [id number] 03/02/2016 14:08:00 03/02/2016 23:59:59 CLS Outpatient SCOTTIE MOSES MD [facility] RAD STONE [id number] 02/17/2016 06:59:00 02/17/2016 11:40:00 DIS Outpatient SCOTTIE MOSES MD [facility] SDC RT.URETHRAL STONE [id number] 02/16/2016 15:16:00 02/16/2016 23:59:59 CLS Outpatient SCOTTIE MOSES MD [facility] PREOP STONES [id number] 02/11/2016 13:52:00 02/11/2016 23:59:59 CLS Outpatient SCOTTIE MOSES MD [facility] RAD RHENAL STONE [id number] 02/11/2016 11:15:00 02/11/2016 23:59:59 CLS Outpatient GREGORIO LEE MD [facility] WSo HAVING TROUBLE [id number] 01/28/2016 06:18:00 01/28/2016 11:00:00 DIS Outpatient SCOTTIE MOSES MD [facility] SDC STONES [id number] 01/26/2016 05:54:00 01/26/2016 23:59:59 CLS Outpatient SCOTTIE MOSES MD [facility] PREOP STONES [id number] 01/17/2016 19:55:00 01/23/2016 15:55:00 DIS Inpatient GREGORIO LEE MD [facility] LDRP CONTRACTIONS,KIDNEY STONES [id number] 12/09/2015 01:54:00 12/09/2015 10:30:00 DIS Outpatient GREGORIO LEE MD [facility] WSo RT SIDE PAIN [id number] 11/12/2015 12:43:00 11/12/2015 23:59:59 CLS Outpatient GREGORIO LEE MD [facility] RAD REPEAT SURVEY TO EVALUATE HEART [id number] 10/02/2015 10:54:00 10/02/2015 23:59:59 CLS Outpatient GREGORIO LEE MD [facility] RAD F/U INCOMPLETE VIEWS [id number] 08/13/2015 10:42:00 08/15/2015 18:05:00 DIS Inpatient GREGORIO LEE MD [facility] WS DEHYDRATION,WEIGHT LOSS,N/ V/O [id number] 07/18/2015 12:20:00 07/18/2015 23:59:59 CLS Outpatient GREGORIO LEE MD [facility] RAD CHECK HEART TONE [id number] 04/03/2014 10:54:00 04/06/2014 13:30:00 DIS Inpatient ADAN DÍAZ MD [facility] PREVIOUS SECTION [id number] 03/27/2014 09:32:00 03/27/2014 23:59:59 CLS Outpatient ADAN DÍAZ MD [facility] PREOP PREVIOUS SECTION [id number] 01/26/2014 22:00:00 01/26/2014 23:59:00 DIS Outpatient GREGORIO LEE MD [facility] WSo ABD PAIN [id number] 11/19/2013 10:17:00 11/19/2013 23:59:59 CLS Outpatient GREGORIO LEE MD [facility] RAD SURVEY SIZE/DATE DISCREPANCY [id number] 09/11/2013 13:45:00 09/14/2013 14:20:00 DIS Inpatient GREGORIO LEE MD [facility] 4TH ACUTE RESPIRATORY DISTRESS, 10 WKS [id number] 10/11/2018 13:00:00 PEN Preadmit ADAN DÍAZ MD PREVIOUS [id number] 10/03/2018 09:00:00 PEN Preadmit ADAN DÍAZ MD [facility] PREOP PREVIOUS [id number] 09/08/2015 09:46:00 Document Registration [id number] 08/13/2015 10:41:00 Document Registration [id number] 07/11/2012 13:57:00 Document Registration [id number] 07/02/2012 18:01:00 Document Registration [id number] 06/20/2012 23:35:00 Document Registration [id number] 03/28/2012 08:38:00 Document Registration [id number] 12/24/2011 08:30:00 Document Registration [id number] 12/03/2011 09:41:00 Document Registration [id number] 11/16/2011 20:01:00 Document Registration [id number] 07/19/2011 11:09:00 Document Registration [id number] 06/21/2011 17:49:00 Document Registration 04/201705/27/2016 10:32:15 05/27/2016 23:59:59 CLS Outpatient [id number] 03/24/2018 09:00:00 03/24/2018 23:59:59 CLS Outpatient GEOFFREY JONES [facility]N [facility]
[2018-09-20] MEDS ORDERED: D5 LR IV SOLUTION 1,000 ML IV ONE ×3 (10:56→15:58)
[2018-09-20 11:16] LABS: BASOPHILS % (AUTO) 0 % (0-10); EOSINOPHILS # (AUTO) 0.1 10^3/uL (0.0-0.3); EOSINOPHILS % (AUTO) 1 % (0-10); HEMATOCRIT 37 % (35-52); HEMOGLOBIN 12.5 G/DL (11.5-16.0); LYMPHOCYTES # (AUTO) 1.2 X 10^3 (1.0-4.0); LYMPHOCYTES % (AUTO) 15 % (12-44); MEAN CORPUSCULAR HEMOGLOBIN 28 PG (25-34); MEAN CORPUSCULAR HGB CONC 34 G/DL (32-36); MEAN CORPUSCULAR VOLUME 83 FL (80-99); MEAN PLATELET VOLUME 11.9 FL (7.4-10.4); MONOCYTES # (AUTO) 0.4 X 10^3 (0.0-1.0); MONOCYTES % (AUTO) 6 % (0-12); NEUTROPHILS # (AUTO) 6.2 X 10^3 (1.8-7.8); NEUTROPHILS % (AUTO) 79 % (42-75); PLATELET COUNT 184 10^3/uL (130-400); RED BLOOD COUNT 4.49 10^6/uL (4.35-5.85); RED CELL DISTRIBUTION WIDTH 14.7 % (10.0-14.5)
[2018-09-20 11:27] LABS: ALANINE AMINOTRANSFERASE 49 U/L (0-55); ALBUMIN 3.6 GM/DL (3.2-4.5); ALKALINE PHOSPHATASE 150 U/L (40-136); BILIRUBIN,TOTAL 0.4 MG/DL (0.1-1.0); BUN/CREATININE RATIO 14; CALCIUM 9.1 MG/DL (8.5-10.1); CARBON DIOXIDE 16 MMOL/L (21-32); CHLORIDE 109 MMOL/L (98-107); CREATININE SERUM 0.65 MG/DL (0.60-1.30); GFR ESTIMATED > 60; GLUCOSE 108 MG/DL (70-105); SODIUM 138 MMOL/L (135-145); TOTAL PROTEIN 7.6 GM/DL (6.4-8.2)
[2018-09-20] MEDS ORDERED: METF-399 PO (11:30)
[2018-09-20 13:44] VITALS: BP 139/83
[2018-09-20] MEDS ORDERED: METOCLOPRAMIDE INJ 10 MG/2 ML (REGLAN) ONE (15:44)
[2018-09-20] MEDS ORDERED: LACTATED RINGERS 2,000 ML IV ONE (15:44)
[2018-09-20] MEDS ORDERED: CITRIC ACID/SOB CIT (BICITRA) 30 ML UDC ONE (15:44)
[2018-09-20] MEDS ORDERED: FAMOTIDINE 20MG/2ML IV (PEPCID) ONE (15:44)
[2018-09-20] MEDS ORDERED: ceFAZolin 2 GM IV Premixed 50 ML ONE (15:44)
[2018-09-20] MEDS ORDERED: metroNIDAZOLE 500MG/100ML IVPB 100 ML ONE (15:44)
[2018-09-20] MEDS ORDERED: ceFAZolin INJECTION 2,000 MG in NS (IVPB) 50 ML IV ONE (15:45)
[2018-09-20] MEDS ORDERED: metroNIDAZOLE 500MG/100ML IVPB 100 ML IV ONE (15:45)
[2018-09-20] MEDS ORDERED: ceFAZolin 2 GM IV Premixed 50 ML IV ONE (15:45)
[2018-09-20] MEDS ORDERED: OXYTOCIN/NORMAL SALINE 500 ML IV SCH (15:50)
--- NOTE | 2018-09-20 15:58 | History & Physical ---
History and Physical Date Seen by Provider: Sep 20, 2018 Time Seen by Provider: 15:52 This patient is a 42-year-old G4 3 white female with EDC of October [birth year] 2008 including 2/7 weeks gestation. Her pregnancies, gestational diabetes type AI. By previous . Oligohydramnios. She was seen in clinic on the pain follow-up. By physical profile at a value of 6 out of 10 with a equivocal NST. She was sent labor and delivery for hydration and evaluation. She does not have NST. Repeat biophysical about now has a value of 2. That value was given only for the DAVE which was 7 she may proceed with delivery secondary to suspected compromise of unsure etiology. GBS culture is not available but has been done. Allergies are none Medications are vitamins, albuterol inhaler when necessary Medical social and surgical history and social histories are reviewed antepartum record HEENT exam is normal Neck supple with no lymphadenopathy no thyromegaly soft nontender nondistended Extremities show no clubbing or cyanosis. There is no Homans sign. Pelvic exam showed the cervix in clinic that was 2 cm dilated and 70 percent effaced -2 station vertex presentation Monitor shows contractions every 8-10 minutes., The heart rate tracing is a equivocal at best. There are no recurrent D-cell but there are occasional decells Bedside ultrasound had a value 2, points given only for an DAVE of 7 Laboratory Tests 09/20/18 10:55 Assessment and plan 35-2/7 weeks gestation patient with gestational diabetes and with oligohydramnios and with nonreassuring heart rate pattern and with 3 previous C-sections. We will proceed now with delivery. Surgery/anesthesia/pediatrics is aware and in route Patient understands the current condition that being inability to determine that the fetus is safe and stable. She has shown decrement in the biophysical profile in the few hours since that was done in my clinic. This patient agrees with the plan. We had discussed RRS as previously. She indicates that she is not certain that in this situation she wants to proceed with that. We will defer additional procedures (RRS) at this time. 35-2/7 weeks gestation, nonreassuring heart rate pattern, abnormal BPP, oligohydramnios, previous 3 Allergies and Home Medications Allergies Coded Allergies: NKANo Known Allergies (Verified Allergy, Unknown, 09/11/13) Home Medications Metformin HCl 1,000 Mg Tablet, 1,000 MG PO BID, (Reported) Patient Home Medication List Home Medication List Reviewed: Yes ADAN DÍAZ MD Sep 20, 2018 15:58
--- NOTE | 2018-09-20 15:59 | Diagnostic Imaging Report ---
Indication: Nonreactive stress test. Biophysical profile was performed. There is a single live fetus in a transverse presentation. heart rate was recorded at 130 beats per minute. Placenta is anterior. Amniotic fluid index is 7.7 cm. Biophysical profile score is 2/8. Deductions were given for lack of breathing movements, movements as well as posture and tone. Impression: Biophysical profile score 2/8. Dr. Dr. Arias was notified of these results by the technologist at the time of the exam. Dictated by: Dictated on workstation # [id number]
[2018-09-20] MEDS ORDERED: PROMETHAZINE INJ 25 MG/ML (PHENERGAN) AMP IM PRN (16:00)
[2018-09-20] MEDS ORDERED: ONDANSETRON 4 MG/2 ML (SDV) Z0FRAN IVP PRN (16:00)
[2018-09-20] MEDS ORDERED: TETANUS,DIPTH,PERTUSS P/F (BOOSTRIX) 0.5 ML VIAL IM ONE (16:00)
[2018-09-20] MEDS ORDERED: MEPERIDINE (DEMEROL) INJ 100 MG/ML IM PRN (16:00)
[2018-09-20] MEDS ORDERED: OXYTOCIN/NORMAL SALINE 1,000 ML IV ONE (16:06)
[2018-09-20] MEDS ORDERED: DEXAMETHASONE 10 MG/ML (DECADRON) 1 ML VIAL ONE (16:08)
[2018-09-20] MEDS ORDERED: ONDANSETRON 4 MG/2 ML (SDV) Z0FRAN ONE (16:08)
[2018-09-20] MEDS ORDERED: fentaNYL INJECTION 100 MCG/2 ML AMP ONE (16:10)
[2018-09-20] MEDS ORDERED: PHENYLEPHRINE 100 MCG/ML 10 ML (ANESTHESIA) SYR ONE (16:34)
[2018-09-20] MEDS ORDERED: BUPIVACAINE SPINAL 0.75% (SENSORCAINE) 2 ML AMP ONE (16:41)
[2018-09-20] MEDS ORDERED: LIDOCAINE PF 2% 5 ML (XYLOCAINE) VIAL ONE (16:41)
[2018-09-20] MEDS: KETOROLAC 30 MG/ML VIAL IVP SCH ×2 (17:11→23:35)
[2018-09-20] MEDS ORDERED: KETOROLAC 30 MG/ML VIAL ONE (17:12)
[2018-09-20] MEDS ORDERED: METOCLOPRAMIDE INJ 10 MG/2 ML (REGLAN) IV PRN (17:45)
[2018-09-20] MEDS ORDERED: NALOXONE 0.4 MG/ML 1 ML (NARCAN) VIAL IV PRN ×2 (17:45)
[2018-09-20] MEDS ORDERED: diphenhydrAMINE 50 MG/ML INJ (BENADRYL) IV PRN (17:45)
[2018-09-20] MEDS ORDERED: ONDANSETRON 4 MG/2 ML (SDV) Z0FRAN IV PRN (17:45)
[2018-09-20 18:15] VITALS: BP 114/70
[2018-09-20] MEDS: DOCUSATE SODIUM 100 MG (COLACE) CAP PO SCH (20:32)
[2018-09-20] MEDS: oxyCODONE/APAP 10/325MG (PERCOCET 10) TABLET PO PRN (20:33)
--- NOTE | 2018-09-20 21:54 | OPERATIVE REPORT ---
DATE OF SERVICE: 09/20/2018 PREOPERATIVE DIAGNOSES: A 35 and 2/7 weeks' gestation with previous C-sections x3 with labor, nonreassuring heart rate pattern, oligohydramnios and gestational diabetes. POSTOPERATIVE DIAGNOSES: A 35 and 2/7 weeks' gestation with previous C-sections x3 with labor, nonreassuring heart rate pattern, oligohydramnios and gestational diabetes. OPERATIVE PROCEDURES: Repeat low transverse delivery of a viable male with Apgars of 8 and 8 at 1 and 5 minutes. Weight of 6 pounds and 15 ounces. time of 1643 and a cord blood pH of 7.19. OPERATIVE DESCRIPTION: With the patient in the supine position under satisfactory spinal analgesia, the patient was prepped and draped in the usual fashion for abdominal surgery. A repeat Pfannenstiel incision was made through the skin with scalpel. The patient's abdomen was entered in the usual manner. Bladder retractor placed in position. Clean scalpel used to make a 4 cm hysterotomy incision transversely across the lower uterine segment. Clear fluid was released on hysterotomy. An incision was extended bluntly and a viable male was delivered via the uterine incision. had Apgars and stats as noted above. The infant was bulb suctioned on delivery of the head and again on completion of delivery. The umbilical cord was doubly clamped and cut. The infant passed to [place], the pediatric nurse in attendance for delivery. Cord bloods were obtained. The placenta delivered manually and additional cord bloods were obtained. The uterus was then exteriorized and interior wiped clean with a wet laparotomy sponge. Uterine incision was closed with a running locked suture of 2-0 Vicryl. A couple of [id number] sutures were placed along the incision in areas that were bleeding. With hemostasis now complete, the uterus was returned to the abdominal cavity. All blood clot and debris removed from the abdominal cavity. Sponge and needle counts correct, hemostasis assured. The anterior parietal peritoneum was closed with running suture of 2-0 Vicryl. Rectus muscles were closed with that suture as well. The rectus fascia was closed with 2-0 Vicryl, subcutaneous tissue was closed with 2-0 Vicryl and the skin was stapled. Sponge and needle counts were correct on completion of the procedure. Estimated blood loss was around 350 mL. The patient tolerated the procedure well and was transferred to the recovery room in stable condition. The had been taken stable to the full-term nursery under the care of Dr. Younger, the domestic technician. Job ID: [id number] DocumentID: [id number] Dictated Date: 09/20/2018 17:32:43 Seam Presser Date: 09/20/2018 21:53:21 Dictated By: ADAN DÍAZ MD MTDD
[2018-09-20 22:00] VITALS: BP 125/74
[2018-09-21 00:50] VITALS: BP 126/72
[2018-09-21] MEDS: oxyCODONE/APAP 10/325MG (PERCOCET 10) TABLET PO PRN ×4 (02:23→21:14)
[2018-09-21 05:40] VITALS: BP 93/52
[2018-09-21] MEDS: KETOROLAC 30 MG/ML VIAL IVP SCH (05:42)
--- NOTE | 2018-09-21 07:07 | Anesthesia-Regional Post-Op ---
Regional Patient Condition Mental Status: Alert, Oriented x3 Circulation: Same as Pre-Op Headache: Absent Sensation: Full Recovery Motor Block: Absent Post Op Complications Complications None Follow Up Care/Instructions Patient Instructions None needed. Anesthesia/Patient Condition Patient is doing well, no complaints, stable vital signs, no apparent adverse anesthesia problems. No complications reported per nursing. MAIA JUAREZ CRNA Sep 21, 2018 07:07
[2018-09-21] MEDS: DOCUSATE SODIUM 100 MG (COLACE) CAP PO SCH ×2 (07:32→21:13)
--- NOTE | 2018-09-21 07:32 | Progress Note-Standard ---
Standard Progress Note Progress Notes/Assess & Plan Date Seen by a Provider: Sep 21, 2018 Time Seen by a Provider: 07:31 Progress/Assessment & Plan This patient is without complaint. She is ambulating, voiding, tolerating oral intake well, has good pain control. Patient denies chest pain, denies shortness of breath, denies nausea vomiting, and denies headache. Vital Signs 09/21/18 05:40 Temp 97.5 Pulse 69 Resp 22 B/P (MAP) 93/52 (66) Pulse Ox 96 O2 Delivery Room Air Vital signs are stable. Patient is afebrile. The abdomen is benign. Extremities show no clubbing or cyanosis. There is no Homans sign. Assessment and plan postoperative day number 1 status post repeat delivery doing well. Plan is routine convalescent care ADAN DÍAZ MD Sep 21, 2018 7:32 am
[2018-09-21] MEDS ORDERED: OXYC1TAB12 PO (07:35)
[2018-09-21] MEDS ORDERED: IBUP-1780 PO (07:35)
[2018-09-21] MEDS ORDERED: DOCU100C37 PO (07:35)
--- NOTE | 2018-09-21 07:37 | Discharge Instructions ---
Discharge Instructions Discharge Medications New, Converted or Re-Newed RX: RX on Chart Patient Instructions Patient Instructions: As directed Return to The Hospital For: As instructed Activity & Diet Discharge Diet: No Restrictions Activity as Tolerated: No Orders-Post D/C & Referrals Follow Up Appt: RTC 1 week for incision check. Call to make follow up appt. for patient in 4 weeks. Wound Care: Remove [place], apply benzoin and steri strips. Activity Per routine post instructions. Please call in RX to patient pharmacy. Diet as tolerated Patient may shower or tub bathe as desired. Continue home meds ADAN DÍAZ MD Sep 21, 2018 7:37 am
[2018-09-21 10:09] VITALS: BP 136/86
[2018-09-21] MEDS: IBUPROFEN 800 MG (MOTRIN) TAB PO SCH ×2 (12:52→18:15)
[2018-09-21 18:02] VITALS: BP 133/88
[2018-09-22 00:20] VITALS: BP 97/57
[2018-09-22] MEDS: IBUPROFEN 800 MG (MOTRIN) TAB PO SCH ×4 (00:23→18:03)
[2018-09-22] MEDS: oxyCODONE/APAP 10/325MG (PERCOCET 10) TABLET PO PRN ×3 (05:39→15:05)
[2018-09-22 05:40] VITALS: BP 130/75
--- NOTE | 2018-09-22 06:53 | Progress Note-Standard ---
Standard Progress Note Progress Notes/Assess & Plan Date Seen by a Provider: Sep 22, 2018 Time Seen by a Provider: 06:51 Progress/Assessment & Plan This patient is without complaint. She is ambulating, voiding, tolerating oral intake well, has good pain control. Patient denies chest pain, denies shortness of breath, denies nausea vomiting, and denies headache. Vital Signs 09/21/18 05:40 Temp 97.5 Pulse 69 Resp 22 B/P (MAP) 93/52 (66) Pulse Ox 96 O2 Delivery Room Air Vital signs are stable. Patient is afebrile. The abdomen is benign. Extremities show no clubbing or cyanosis. There is no Homans sign. Assessment and plan postoperative day number 1 status post repeat delivery doing well. Plan is routine convalescent care September 22, 2018 Patient is without complaint. She is having some pain but is only taking part of the pain medicine prescribed. she is ambulating, voiding, tolerating by mouth well. Vital Signs 09/21/18 09/22/18 18:02 05:40 Temp 97.3 Pulse 85 Resp 18 B/P (MAP) 130/75 (93) Pulse Ox 97 O2 Delivery Room Air Vital signs are stable. Patient is afebrile. The abdomen is benign. The surgical incision is clean dry and intact. Fundus is firm below the umbilicus and nontender. Extremities show no clubbing cyanosis. There is no Homans sign. Assessment and plan postoperative day number 2 status post repeat delivery doing well plan is to continue routine convalescence. Consider for discharge home tomorrow ADAN DÍAZ MD Sep 22, 2018 6:53 am
[2018-09-22] MEDS: DOCUSATE SODIUM 100 MG (COLACE) CAP PO SCH (09:42)
[2018-09-22 12:40] VITALS: BP 152/93
[2018-09-22] MEDS ORDERED: TETANUS,DIPTH,PERTUSS P/F (BOOSTRIX) 0.5 ML VIAL IM ONE (17:43)
[2018-09-22 20:00] VITALS: BP 121/76
== END 2018-09-22 20:10 | disposition home or self-care (01) | DRG 787 ==
LOC: LDRP 10:42 → OBSVTOIN 10:42 → LDRP 18:15
PROVIDERS: ADMIT Obstetrics & Gynecology; ATTEND Obstetrics & Gynecology
PROC: 10D00Z1 Extraction of Products of Conception, Low, Open Approach (ICD-10-PCS; principal; 2018-09-20 16:13)
DX: O60.14X0 Preterm labor third trimester with preterm delivery third trimester, not applicable or unspecified (principal); O76 Abnormality in fetal heart rate and rhythm complicating labor and delivery; O41.03X0 Oligohydramnios, third trimester, not applicable or unspecified; O24.429 Gestational diabetes mellitus in childbirth, unspecified control; O34.211 Maternal care for low transverse scar from previous cesarean delivery; Z23 Encounter for immunization; Z3A.35 35 weeks gestation of pregnancy; Z37.0 Single live birth
CPT/HCPCS: 36415; 76819; 80053; 85025; 86850; 86900; 86901; 88307; 90471; 90715; 94664

== ENCOUNTER 2018-10-10 09:25 | Outpatient (RCR) | payer BC ==
[~2018-10-10 09:25] MED LIST changes: +METF-399 PO; +OXYC1TAB12 PO
== END 2019-01-08 | disposition home or self-care (01) ==
LOC: LAB 09:25
PROVIDERS: ATTEND Pediatrics
DX: Z39.1 Encounter for care and examination of lactating mother (principal)
CPT/HCPCS: 99211

== ENCOUNTER → 2019-07-05 | Outpatient (CLI) | payer OTHER ==
--- NOTE | 2019-07-05 18:12 | Diagnostic Imaging Report ---
INDICATION: Left foot pain. EXAMINATION: AP, oblique and lateral views of the left foot were obtained. FINDINGS: No fracture or acute bony abnormality is seen. IMPRESSION: Negative left foot. Dictated by: Dictated on workstation # [id number]
== END ==
LOC: RAD 15:45
PROVIDERS: ATTEND Family Medicine
DX: M79.672 Pain in left foot (principal)
CPT/HCPCS: 73630

== ENCOUNTER 2020-04-20 13:26 | Emergency (ER) | payer OTHER ==
[~2020-04-20] VITALS: Ht 170 cm; Wt 105.0 kg
[~2020-04-20 13:26] MED LIST changes: -TAMS0.4C98 PO; +TMSL.4C PO
[2020-04-20] MEDS ORDERED: NS IV 1000 ML 1,000 ML IV SCH (13:30)
[2020-04-20 13:40] LABS: BASOPHILS % (AUTO) 1 % (0-10); EOSINOPHILS # (AUTO) 0.1 10^3/uL (0.0-0.3); EOSINOPHILS % (AUTO) 2 % (0-10); HEMATOCRIT 42 % (35-52); HEMOGLOBIN 14.4 G/DL (11.5-16.0); LYMPHOCYTES # (AUTO) 1.6 X 10^3 (1.0-4.0); LYMPHOCYTES % (AUTO) 39 % (12-44); MEAN CORPUSCULAR HEMOGLOBIN 28 PG (25-34); MEAN CORPUSCULAR HGB CONC 34 G/DL (32-36); MEAN CORPUSCULAR VOLUME 82 FL (80-99); MONOCYTES # (AUTO) 0.2 X 10^3 (0.0-1.0); MONOCYTES % (AUTO) 5 % (0-12); NEUTROPHILS # (AUTO) 2.2 X 10^3 (1.8-7.8); NEUTROPHILS % (AUTO) 53 % (42-75); PLATELET COUNT 132 10^3/uL (130-400); RED CELL DISTRIBUTION WIDTH 13.8 % (10.0-14.5); WHITE BLOOD COUNT 4.2 10^3/uL (4.3-11.0)
--- NOTE | 2020-04-20 13:41 | ED General ---
General Chief Complaint: Dizziness/Syncope Stated Complaint: LETHARGIC/DIABETIC Nursing Triage Note: PRESENTED TO ER VIA WC ET STATES SHE FEELS LIKE SHE IS GOING TO PASS OUT. FAMILY THINKS IT IS HER BLOOD SUGAR. Nursing Sepsis Screen: No Definite Risk Source of Information: Patient Exam Limitations: No Limitations History of Present Illness Date Seen by Provider: April 20, 2020 Time Seen by Provider: 13:39 Initial Comments To ER with reports of feeling lightheaded. She is thought to be diabetic but not known to be diabetic. Patient does not contribute to history of present illness other than this. Timing/Duration: 1-3 Hours Severity: Moderate Associated Systoms: Denies Symptoms Allergies and Home Medications Allergies Coded Allergies: NKANo Known Allergies (Verified Allergy, Unknown, 09/11/13) Home Medications Docusate Sodium 100 Mg Capsule, 100 MG PO BID Prescribed by: ADAN SUTHERLAND on 09/21/18 0735 Ibuprofen 800 Mg Tablet, 800 MG PO Q6H Prescribed by: ADAN SUTHERLAND on 09/21/18 0735 Oxycodone HCl/Acetaminophen 1 Each Tablet, 1 TAB PO Q4HR PRN for PAIN-MODERATE T O SEVERE You may continue to take this medication as you were taking It during your hospitalization for your delivery Prescribed by: ADAN SUTHERLAND on 09/21/18 0735 Patient Home Medication List Home Medication List Reviewed: Yes Review of Systems Review of Systems Constitutional: see HPI EENTM: see HPI Respiratory: no symptoms reported Cardiovascular: no symptoms reported Genitourinary: no symptoms reported Musculoskeletal: no symptoms reported Skin: no symptoms reported Psychiatric/Neurological: No Symptoms Reported Hematologic/Lymphatic: No Symptoms Reported Immunological/Allergic: no symptoms reported Past Qjbmgle-Xtsqlf-Xmhhex Hx Patient Social History Alcohol Use: Denies Use Recreational Drug Use: No Smoking Status: Never a Smoker 2nd Hand Smoke Exposure: No Recent Foreign Travel: No Contact w/Someone Who Travel: No Recent Infectious Disease Expo: No Recent Hopitalizations: No Immunizations Up To Date Tetanus Booster (TDap): Less than 5yrs Date of Pneumonia Vaccine: Aug 04, 2011 Date of Influenza Vaccine: Sep 08, 2018 Seasonal Allergies Seasonal Allergies: No Past Medical History Surgeries: Yes (MULTIPLE KIDNEY STONE REMOVALS.) Gallbladder Respiratory: Yes Asthma Cardiac: No Neurological: No Reproductive Disorders: No Female Reproductive Disorders: Denies Sexually Transmitted Disease: No HIV/AIDS: No Genitourinary: No Kidney Stones Gastrointestinal: No Musculoskeletal: No Endocrine: No (PT IS GDM ) HEENT: No Cancer: No Psychosocial: No Integumentary: No Blood Disorders: No Adverse Reaction/Blood Tranf: No Family Medical History Cancer 19 MOTHER Family history: Diabetes mellitus 19 FATHER G8 SISTER Thyroid disease (hypothyroid) 19 MOTHER Physical Exam Vital Signs Vital Signs - First Documented 04/20/20 13:28 Temp 37.0 Pulse 77 Resp 16 B/P (MAP) 145/98 (114) Pulse Ox 93 O2 Delivery Room Air Capillary Refill : Less Than 3 Seconds Height, Weight, BMI Height: 5'7.00" Weight: 7lbs. 10.1oz. [id number]; 36.00 BMI Method:Stated General Appearance: No Apparent Distress, WD/WN Eyes: Bilateral Eye Normal Inspection, Bilateral Eye PERRL, Bilateral Eye EOMI HEENT: PERRL/EOMI, TMs Normal Neck: Full Range of Motion, Normal Inspection Respiratory: No Accessory Muscle Use, No Respiratory Distress Cardiovascular: Regular Rate, Rhythm, Normal Peripheral Pulses Gastrointestinal: Normal Bowel Sounds, Non Tender, Soft Extremity: Normal Capillary Refill, Normal Inspection Neurologic/Psychiatric: Other (Lethargic, crying,) Skin: Normal Color, Warm/Dry Focused Exam Lactate Level 04/20/20 13:37: Lactic Acid Level 1.75 Lactic Acid Level Laboratory Tests Test 04/20/20 13:37 Lactic Acid Level 1.75 MMOL/L (0.50-2.00) Progress/Results/Core Measures Suspected Sepsis Recent Fever Within 48 Hours: No Infection Criteria Present: Suspected New Infection New/Unexplained Altered Menta: No Sepsis Screen: No Definite Risk SIRS Temperature: Pulse: 77 Respiratory Rate: 16 Laboratory Tests 04/20/20 13:30: White Blood Count 4.2L Blood Pressure 145 /98 Mean: 114 04/20/20 13:37: Lactic Acid Level 1.75 Laboratory Tests 04/20/20 13:30: Creatinine 0.85, INR Comment 1.1, Platelet Count 132, Total Bilirubin 0.6 Results/Orders Lab Results Laboratory Tests Test 04/20/20 13:30 04/20/20 13:31 04/20/20 13:37 04/20/20 13:45 Range/Units White Blood Count 4.2 L 4.3-11.0 10^3/uL Red Blood Count 5.10 4.35-5.85 10^6/uL Hemoglobin 14.4 11.5-16.0 G/DL Hematocrit 42 35-52 % Mean Corpuscular Volume 82 80-99 FL Mean Corpuscular Hemoglobin 28 25-34 PG Mean Corpuscular Hemoglobin Concent 34 32-36 G/DL Red Cell Distribution Width 13.8 10.0-14.5 % Platelet Count 132 130-400 10^3/uL Mean Platelet Volume 12.0 H 7.4-10.4 FL Neutrophils (%) (Auto) 53 42-75 % Lymphocytes (%) (Auto) 39 12-44 % Monocytes (%) (Auto) 5 0-12 % Eosinophils (%) (Auto) 2 0-10 % Basophils (%) (Auto) 1 0-10 % Neutrophils # (Auto) 2.2 1.8-7.8 X 10^3 Lymphocytes # (Auto) 1.6 1.0-4.0 X 10^3 Monocytes # (Auto) 0.2 0.0-1.0 X 10^3 Eosinophils # (Auto) 0.1 0.0-0.3 10^3/uL Basophils # (Auto) 0.0 0.0-0.1 10^3/uL Prothrombin Time 14.9 H 12.2-14.7 SEC INR Comment 1.1 0.8-1.4 Activated Partial Thromboplast Time 34 24-35 SEC Sodium Level 136 135-145 MMOL/L Potassium Level 3.7 3.6-5.0 MMOL/L Chloride Level 104 98-107 MMOL/L Carbon Dioxide Level 20 L 21-32 MMOL/L Anion Gap 12 5-14 MMOL/L Blood Urea Nitrogen 7 7-18 MG/DL Creatinine 0.85 0.60-1.30 MG/DL Estimat Glomerular Filtration Rate > 60 BUN/Creatinine Ratio 8 Glucose Level 425 *H 70-105 MG/DL Calcium Level 8.6 8.5-10.1 MG/DL Corrected Calcium 8.6 8.5-10.1 MG/DL Magnesium Level 1.7 1.6-2.4 MG/DL Total Bilirubin 0.6 0.1-1.0 MG/DL Aspartate Amino Transf (AST/SGOT) 90 H 5-34 U/L Alanine Aminotransferase (ALT/SGPT) 82 H 0-55 U/L Alkaline Phosphatase 115 40-136 U/L Total Protein 7.8 6.4-8.2 GM/DL Albumin 4.0 3.2-4.5 GM/DL Amylase Level 22 L 25-125 U/L Lipase 41 8-78 U/L Beta-Hydroxybutyrate (Chem panel) 0.14 0.00-0.27 MMOL/L TSH [place] Testing 2.26 0.35-4.94 UIU/ML Serum Alcohol < 10 <10 MG/DL Glucometer 376 H 70-110 MG/DL Lactic Acid Level 1.75 0.50-2.00 MMOL/L Urine Color YELLOW Urine Clarity CLEAR Urine pH 7.0 5-9 Urine Specific [place] 1.010 L 1.016-1.022 Urine Protein NEGATIVE NEGATIVE Urine Glucose (UA) 3+ H NEGATIVE Urine Ketones NEGATIVE NEGATIVE Urine Nitrite NEGATIVE NEGATIVE Urine Bilirubin NEGATIVE NEGATIVE Urine Urobilinogen 1.0 < = 1.0 MG/DL Urine Leukocyte Esterase NEGATIVE NEGATIVE Urine RBC (Auto) NEGATIVE NEGATIVE Urine RBC NONE /HPF Urine WBC NONE /HPF Urine Squamous Epithelial Cells RARE /HPF Urine Crystals NONE /LPF Urine Bacteria NEGATIVE /HPF Urine Casts NONE /LPF Urine Mucus NEGATIVE /LPF Urine Culture Indicated NO Urine Test NEGATIVE NEGATIVE Urine Opiates Screen NEGATIVE NEGATIVE Urine Oxycodone Screen NEGATIVE NEGATIVE Urine Methadone Screen NEGATIVE NEGATIVE Urine Propoxyphene Screen NEGATIVE NEGATIVE Urine Barbiturates Screen NEGATIVE NEGATIVE Ur Tricyclic Antidepressants Screen NEGATIVE NEGATIVE Urine Phencyclidine Screen NEGATIVE NEGATIVE Urine Amphetamines Screen NEGATIVE NEGATIVE Urine Methamphetamines Screen NEGATIVE NEGATIVE Urine Benzodiazepines Screen NEGATIVE NEGATIVE Urine Cocaine Screen NEGATIVE NEGATIVE Urine Cannabinoids Screen NEGATIVE NEGATIVE My Orders Orders - BREONNA PERSON APRN Ct Head Wo (04/20/20 13:41) Hcg,Qualitative Urine (04/20/20 13:56) Beta Hydroxybutyrate (04/20/20 13:56) Insulin (Regular) Human (Humulin R (Per (04/20/20 14:30) Lactated Ringers (Lr 1000 Ml Iv Solution (04/20/20 14:45) Vital Signs/I&O 04/20/20 13:28 Temp 37.0 Pulse 77 Resp 16 B/P (MAP) 145/98 (114) Pulse Ox 93 O2 Delivery Room Air Capillary Refill : Less Than 3 Seconds Blood Pressure Mean: 114 Point of Care Testing Finger Stick Blood Glucose: 376 Departure Communication (Admissions) NAME: TISH CRISTINA [facility] REC#: [id number] PT STATUS: REG ER : 1975 PHYSICIAN: BREONNA PERSON APRN ADMIT DATE: 04/20/20/ER Draft Date of Exam:04/20/20 CT HEAD WO PROCEDURE: CT head without contrast. TECHNIQUE: Multiple contiguous axial images were obtained through the brain without the use of intravenous contrast. Auto Exposure Controls were utilized during the CT exam to meet ALARA standards for radiation dose reduction. INDICATION: Weakness. Pre-syncope. COMPARISON: None. FINDINGS: No intracranial hemorrhage, mass effect, hydrocephalus or extra-axial fluid collections. No CT evidence of a territorial infarction. Partially calcified extra-axial mass overlying the left falx along the anterior left frontal lobe measures 1.2 x 0.8 cm. Osseous structures are intact. The visualized paranasal sinuses and mastoids are clear. IMPRESSION: 1. No acute intracranial CT finding. 2. Small partially calcified extra-axial mass overlying the anterior left frontal lobe likely represents a benign meningioma. This could be further evaluated with nonemergent MRI without and with IV contrast if clinically warranted. Dictated on workstation # [id number] Dict: 04/20/20 1440 Trans: 04/20/20 1445 [facility] [id number] Interpreted by: VICTORINO JONES MD Electronically signed by: Impression Primary Impression: Hyperglycemia Additional Impression: Dehydration Disposition: 01 HOME, SELF-CARE Condition: Stable Departure-Patient Inst. Decision time for Depature: 14:59 Referrals: RAVINDER SIMENTAL MD (PCP/Family) Primary Care Physician Patient Instructions: Hyperglycemia, Adult Add. Discharge Instructions: Medications as directed 2. Follow-up with Dr. Ravinder Simental 3. Return to ER for any worsening 4. There is an area on the CT brain which has the appearance of a meningioma, a benign lesion that has been there for a long time, this does not cause any of your symptoms. if additional workup is desired then an MRI could be ordered All discharge instructions reviewed with patient and/or family. Voiced understanding. Scripts Metformin HCl (Metformin HCl) 500 Mg Tablet 500 MG PO BID, #60 TAB Prov: BREONNA PERSON APRN 04/20/20 Copy Copies To 1: RAVINDER SIMENTAL MD, PETER J [employer] April 20, 2020 13:41
[2020-04-20 13:50] LABS: CHLORIDE 104 MMOL/L (98-107); INR 1.1 (0.8-1.4); PROTHROMBIN TIME PATIENT 14.9 SEC (12.2-14.7)
[2020-04-20 13:51] LABS: POTASSIUM 3.7 MMOL/L (3.6-5.0); SODIUM 136 MMOL/L (135-145)
[2020-04-20 13:52] LABS: AMYLASE 22 U/L (25-125); CALCIUM 8.6 MG/DL (8.5-10.1)
[2020-04-20 13:53] LABS: TOTAL PROTEIN 7.8 GM/DL (6.4-8.2)
[2020-04-20 13:54] LABS: CARBON DIOXIDE 20 MMOL/L (21-32)
--- NOTE | 2020-04-20 13:54 | NUR ---
ATTEMPT FOR ABG UNSUCCESSFUL. BREONNA WENT IN TO ATTEMPT ET PT REFUSED.
[2020-04-20 13:55] LABS: BILIRUBIN,TOTAL 0.6 MG/DL (0.1-1.0); GLUCOSE 425 MG/DL (70-105)
[2020-04-20 13:56] LABS: ALKALINE PHOSPHATASE 115 U/L (40-136)
[2020-04-20 13:57] LABS: CREATININE SERUM 0.85 MG/DL (0.60-1.30); GFR ESTIMATED > 60
[2020-04-20 13:57] LABS: BILIRUBIN,URINE NEGATIVE (NEGATIVE); CLARITY,URINE CLEAR; COLOR,URINE YELLOW; GLUCOSE, URINE (UA) 3+ (NEGATIVE); KETONES,URINE NEGATIVE (NEGATIVE); LEUKOCYTE ESTERASE ,URINE NEGATIVE (NEGATIVE); NITRITE,URINE NEGATIVE (NEGATIVE); PROTEIN,URINE NEGATIVE (NEGATIVE)
[2020-04-20 13:58] LABS: BUN/CREATININE RATIO 8
[2020-04-20 13:59] LABS: ALANINE AMINOTRANSFERASE 82 U/L (0-55)
[2020-04-20 14:00] LABS: MAGNESIUM 1.7 MG/DL (1.6-2.4)
[2020-04-20 14:01] LABS: LIPASE 41 U/L (8-78)
[2020-04-20 14:04] LABS: BACTERIA,URINE NEGATIVE /HPF; SQUAMOUS EPITHELIAL CELL,UR RARE /HPF
[2020-04-20 14:08] LABS: AMPHETAMINE SCREEN, URINE NEGATIVE (NEGATIVE); BENZODIAZEPINES SCREEN URINE NEGATIVE (NEGATIVE); CANNABINOID SCREEN, URINE NEGATIVE (NEGATIVE); COCAINE SCREEN URINE NEGATIVE (NEGATIVE); METHAMPHETAMINE SCREEN URINE S NEGATIVE (NEGATIVE)
[2020-04-20 14:09] LABS: BARBITURATE SCREEN URINE NEGATIVE (NEGATIVE); METHADONE STAT NEGATIVE (NEGATIVE); OPIATE SCREEN URINE NEGATIVE (NEGATIVE); OXYCODONE STAT NEGATIVE (NEGATIVE); PROPOXYPHENE STAT NEGATIVE (NEGATIVE); TRICYCLIC ANTIDEPRESSANTS SCRE NEGATIVE (NEGATIVE)
--- NOTE | 2020-04-20 14:12 | NUR ---
LAB IN ROOM AT THIS TIME.
[2020-04-20 14:21] LABS: TSH (THYROID ANALYZER) 2.26 UIU/ML (0.35-4.94)
[2020-04-20] MEDS ORDERED: inSUlin (REGULAR) HUMAN 1 UNIT/0.01 ML (CHARGE PER UNIT) IV SCH (14:30)
--- NOTE | 2020-04-20 14:41 | Diagnostic Imaging Report ---
EXAM: CHEST 1 VIEW, AP/PA ONLY INDICATION: Weakness. Pre-syncope. COMPARISON: 07/11/2012. FINDINGS: Normal heart size and central pulmonary vascularity. No focal pulmonary opacity, pleural effusion or pneumothorax. No acute osseous findings. IMPRESSION: No acute cardiopulmonary findings. Dictated by: Dictated on workstation # [id number]
[2020-04-20] MEDS ORDERED: LACTATED RINGERS 1,000 ML IV SCH (14:45)
--- NOTE | 2020-04-20 14:45 | Diagnostic Imaging Report ---
PROCEDURE: CT head without contrast. TECHNIQUE: Multiple contiguous axial images were obtained through the brain without the use of intravenous contrast. Auto Exposure Controls were utilized during the CT exam to meet ALARA standards for radiation dose reduction. INDICATION: Weakness. Pre-syncope. COMPARISON: None. FINDINGS: No intracranial hemorrhage, mass effect, hydrocephalus or extra-axial fluid collections. No CT evidence of a territorial infarction. Partially calcified extra-axial mass overlying the left falx along the anterior left frontal lobe measures 1.2 x 0.8 cm. Osseous structures are intact. The visualized paranasal sinuses and mastoids are clear. IMPRESSION: 1. No acute intracranial CT finding. 2. Small partially calcified extra-axial mass overlying the anterior left frontal lobe likely represents a benign meningioma. This could be further evaluated with nonemergent MRI without and with IV contrast if clinically warranted. Dictated by: Dictated on workstation # [id number]
[2020-04-20] MEDS ORDERED: METF-397 PO (15:05)
[2020-04-20 16:41] VITALS: BP 147/105
== END 2020-04-20 16:41 | disposition home or self-care (01) ==
LOC: EDUNIT# 13:26 → ER 13:27
DX: R73.9 Hyperglycemia, unspecified (principal); E86.0 Dehydration
CPT/HCPCS: 36415; 51701; 70450; 71045; 80053; 80306; 80320; 81000; 82010; 82150; 82962; 83036; 83605; 83690; 83735; 84443; 84703; 85025; 85610; 85730; 87040; 93005; 93041

== ENCOUNTER → 2020-04-22 | Outpatient (CLI) | payer OTHER ==
[~2020-04-22] MED LIST changes: +METF-397 PO
--- NOTE | 2020-04-22 13:06 | Diagnostic Imaging Report ---
INDICATION: Routine screening. COMPARISON: 12/26/2017. TECHNIQUE: 2D and 3D bilateral screening mammography was performed with CAD. FINDINGS: Scattered fibroglandular densities are identified bilaterally. The prior mammogram noted a density in the superior central right breast. A followup was recommended but the patient did not return for followup. This density does persist. This is similar in appearance but there are small calcifications adjacent to this on today's study. Again, additional views and ultrasound are recommended of this area. The left breast is stable. There are benign calcifications. The axillae are unremarkable. IMPRESSION: Right breast density with some calcifications. Additional views and likely ultrasound are recommended for further evaluation. ACR BI-RADS Category 0: Incomplete. (Needs additional imaging evaluation). Result letter will be mailed to the patient. Note: At least 10% of breast cancer is not imaged by mammography. Dictated by: Dictated on workstation # [id number]
== END ==
LOC: RAD 10:12
PROVIDERS: ATTEND Obstetrics & Gynecology
DX: Z12.31 Encounter for screening mammogram for malignant neoplasm of breast (principal); R92.1 Mammographic calcification found on diagnostic imaging of breast
CPT/HCPCS: 77063; 77067

== ENCOUNTER → 2020-05-05 | Outpatient (CLI) | payer OTHER ==
--- NOTE | 2020-05-05 14:51 | Diagnostic Imaging Report ---
INDICATION: Right breast nodule with calcifications. Patient presents for further evaluation. COMPARISON: Correlation is made with the recent screening study from 04/22/2020. TECHNIQUE: Unilateral right 2D and 3D diagnostic mammography was performed. This included magnification CC and ML views as well as a spot compression ML and conventional 90 degree lateral views. The current study was evaluated with a Computer Aided Detection (CAD) system. FINDINGS: A slightly nodular density in the upper and slightly inner right breast at posterior depth is noted. There are several adjacent calcifications which are indeterminate. These mostly are round. No other suspicious abnormality is seen. IMPRESSION: Cluster of calcifications in the upper slightly inner right breast at posterior depth adjacent to or within nodular densities previously seen. Further evaluation of this area with ultrasound is recommended and will be performed today. ACR BI-RADS Category 0: Incomplete. (Needs additional imaging evaluation). Result letter will be mailed to the patient. Note: At least 10% of breast cancer is not imaged by mammography. This is BI-RADS 0 Dictated by: Dictated on workstation # [id number]
--- NOTE | 2020-05-05 14:56 | Diagnostic Imaging Report ---
INDICATION: Right breast calcification and nodularity. COMPARISON: Correlation is made with the diagnostic mammogram from earlier this same day and the screening mammogram from 04/22/2020. FINDINGS: Sonographic interrogation of the upper and slightly inner aspect of the right breast was performed. No sonographic abnormality is seen. No solid or cystic mass is detected. No abnormality to correspond to the densities noted mammographically are seen. IMPRESSION: No sonographic abnormality is seen. Even so, a stereotactic biopsy of the calcifications and adjacent nodularity in the upper and slightly inner right breast at posterior depth would be recommended. ACR BI-RADS Category 4: Suspicious abnormality. Result letter will be mailed to the patient. Note: At least 10% of breast cancer is not imaged by mammography. Dictated by: Dictated on workstation # [id number]
== END ==
LOC: RAD 13:02
PROVIDERS: ATTEND Obstetrics & Gynecology
DX: N63.10 Unspecified lump in the right breast, unspecified quadrant (principal); R92.8 Other abnormal and inconclusive findings on diagnostic imaging of breast

== ENCOUNTER → 2020-05-23 | Outpatient (CLI) | payer OTHER ==
[~2020-05-23] VITALS: Ht 65 cm; Wt 105.0 kg
[~2020-05-23] MED LIST changes: +LIDOCAINE 1% INJ 20 ML 20 ML VIAL INJ ONE; +LIDOCAINE 1% INJ 20 ML 20 ML VIAL ONE
[2020-05-23 08:50] VITALS: BP 145/89
[2020-05-23 09:47] VITALS: BP 131/80
--- NOTE | 2020-05-23 10:23 | Diagnostic Imaging Report ---
EXAM: Stereotactic biopsy right breast INDICATION: Abnormal microcalcifications FINDINGS: The diagnostic mammogram of the right breast performed on 05/05/2020 noted a group of indeterminate calcifications deep in the midportion of the right breast. Following aseptic preparation of the skin and administration of local anesthesia, the area in question was biopsied using a stereotactic device. Multiple specimens were obtained. One of the specimen appears to contain most of the calcifications in question. Subsequently, a stereotactic clip was inserted into the biopsy site. The postprocedure mammogram performed at a separate workstation shows that the clip appears to be in good position and the calcifications in question are no longer visualized. The patient tolerated the procedure well. IMPRESSION: There has been a successful stereotactic biopsy of the right breast. Final pathology report is pending. Dictated by: Dictated on workstation # [id number]
== END ==
LOC: RAD 08:32
PROVIDERS: ATTEND Surgery
DX: R92.0 Mammographic microcalcification found on diagnostic imaging of breast (principal)
CPT/HCPCS: 19081; 88305; A4648

== ENCOUNTER → 2020-06-06 | Outpatient (CLI) | payer OTHER ==
[~2020-06-06] MED LIST changes: -LIDOCAINE 1% INJ 20 ML 20 ML VIAL INJ ONE; -LIDOCAINE 1% INJ 20 ML 20 ML VIAL ONE
[2020-06-06 11:37] LABS: CHLORIDE 106 MMOL/L (98-107); SODIUM 140 MMOL/L (135-145)
[2020-06-06 11:38] LABS: CALCIUM 8.7 MG/DL (8.5-10.1)
[2020-06-06 11:39] LABS: GLUCOSE 102 MG/DL (70-105)
[2020-06-06 11:40] LABS: CARBON DIOXIDE 24 MMOL/L (21-32)
[2020-06-06 11:43] LABS: GFR ESTIMATED > 60
[2020-06-06 11:44] LABS: BUN/CREATININE RATIO 15
[2020-06-06 11:45] LABS: URIC ACID 6.7 MG/DL (2.6-7.2)
--- NOTE | 2020-06-06 11:55 | Diagnostic Imaging Report ---
INDICATION: Bilateral renal stones. TIME OF EXAM: 11:29 AM Correlation is made with prior radiograph of the abdomen from 12/26/2017. The bowel gas pattern is unremarkable. There are surgical clips right upper quadrant. No definite radiopaque calculi are seen overlying the renal shadows or the expected course of the ureters. IMPRESSION: No definite radiopaque urinary tract calculi are detected. Dictated by: Dictated on workstation # [id number]
== END ==
LOC: RAD 11:03
PROVIDERS: ATTEND Urology
DX: N20.0 Calculus of kidney (principal)
CPT/HCPCS: 36415; 74018; 80048; 82306; 84100; 84550

== ENCOUNTER 2021-03-16 13:34 | Observation (INO) | payer OTHER ==
[~2021-03-16] VITALS: Ht 165.1 cm; Wt 91.4 kg
[2021-03-16 13:33] VITALS: BP 139/82
[~2021-03-16 13:34] MED LIST changes: -OXYC-465 PO; +OXYC-556 PO
[2021-03-16] MEDS ORDERED: METF-399 PO (13:47)
[2021-03-16] MEDS ORDERED: METF-397 PO (13:47)
[2021-03-16] MEDS ORDERED: LACTATED RINGERS 1,000 ML IV ONE (14:38)
[2021-03-16 15:55] LABS: BASOPHILS % (AUTO) 0 % (0-10); EOSINOPHILS # (AUTO) 0.1 10^3/uL (0.0-0.3); EOSINOPHILS % (AUTO) 1 % (0-10); HEMATOCRIT 39 % (35-52); HEMOGLOBIN 13.2 g/dL (11.5-16.0); LYMPHOCYTES # (AUTO) 1.3 10^3/uL (1.0-4.0); LYMPHOCYTES % (AUTO) 19 % (12-44); MEAN CORPUSCULAR HEMOGLOBIN 29 pg (25-34); MEAN CORPUSCULAR HGB CONC 34 g/dL (32-36); MEAN CORPUSCULAR VOLUME 86 fL (80-99); MEAN PLATELET VOLUME 10.6 fL (9.0-12.2); MONOCYTES # (AUTO) 0.4 10^3/uL (0.0-1.0); MONOCYTES % (AUTO) 5 % (0-12); NEUTROPHILS # (AUTO) 5.1 10^3/uL (1.8-7.8); NEUTROPHILS % (AUTO) 74 % (42-75); PLATELET COUNT 137 10^3/uL (130-400); WHITE BLOOD COUNT 6.9 10^3/uL (4.3-11.0)
[2021-03-16] MEDS: LACTATED RINGERS 1,000 ML IV SCH ×2 (15:55→23:14)
[2021-03-16 16:08] LABS: CHLORIDE 106 MMOL/L (98-107); POTASSIUM 4.2 MMOL/L (3.6-5.0); SODIUM 138 MMOL/L (135-145)
[2021-03-16 16:11] LABS: GLUCOSE 96 MG/DL (70-105); TOTAL PROTEIN 7.9 GM/DL (6.4-8.2)
[2021-03-16 16:12] LABS: BILIRUBIN,TOTAL 0.4 MG/DL (0.1-1.0); CARBON DIOXIDE 19 MMOL/L (21-32)
[2021-03-16 16:14] LABS: ALKALINE PHOSPHATASE 36 U/L (40-136); CREATININE SERUM 0.66 MG/DL (0.60-1.30); GFR ESTIMATED > 60
[2021-03-16 16:15] LABS: BUN/CREATININE RATIO 15
[2021-03-16 16:17] LABS: ALANINE AMINOTRANSFERASE 21 U/L (0-55)
[2021-03-16 16:37] LABS: BILIRUBIN,URINE NEGATIVE (NEGATIVE); CLARITY,URINE CLEAR; COLOR,URINE YELLOW; GLUCOSE, URINE (UA) NEGATIVE (NEGATIVE); KETONES,URINE TRACE (NEGATIVE); LEUKOCYTE ESTERASE ,URINE NEGATIVE (NEGATIVE); NITRITE,URINE NEGATIVE (NEGATIVE); PROTEIN,URINE NEGATIVE (NEGATIVE)
[2021-03-16] MEDS ORDERED: fentaNYL INJ 100 MCG/2 ML AMP ONE (16:42)
[2021-03-16 16:45] LABS: BACTERIA,URINE TRACE /HPF
[2021-03-16 16:46] LABS: SQUAMOUS EPITHELIAL CELL,UR RARE /HPF
[2021-03-16 16:50] VITALS: BP 134/87
--- NOTE | 2021-03-16 16:50 | Diagnostic Imaging Report ---
PROCEDURE: US Renal Bilateral. TECHNIQUE: Multiple real-time grayscale images were obtained over the kidneys in various projections bilaterally. INDICATION: Nephrolithiasis. Renal parenchyma is normal in cortical thickness and echotexture. The right kidney 12.2, the left is at least 9 cm although partially obscured. Urinary bladder unremarkable with patency of the bilateral ureteral jets confirmed. There is an 8 mm echogenic structure in the right kidney of believed to reflect a nonobstructing stone. No elmer hydronephrosis is present but the right calyces may be mildly ectatic. IMPRESSION: Probable subcentimeter intrarenal stone, right kidney. No overt hydronephrosis. There may be mild right-sided caliectasis. Left kidney showed limited visualization, partially obscured by gas, but no obvious pathology. Dictated by: Dictated on workstation # [id number]
[2021-03-16] MEDS ORDERED: fentaNYL INJ 100 MCG/2 ML AMP IVP ONE (17:00)
[2021-03-16 18:35] VITALS: BP 126/64
[2021-03-16 19:25] VITALS: BP 127/78
[2021-03-16] MEDS ORDERED: ONDANSETRON 4 MG/2 ML (SDV) Z0FRAN IVP PRN (19:45)
--- NOTE | 2021-03-16 19:51 | History & Physical ---
History and Physical Date Seen by Provider: Mar 16, 2021 Time Seen by Provider: 18:35 45 Y/O wf ADMITTED FOR OBSERVATION DUE TO SIGNS AND SYMPOMS CONSISTENT WITH RIGHT URETERAL STONE. Patient has had multiple of episodes of nephrolitiasis in the past requiring treatments including surgical removal of ureteral stones and lithotripsy. Parient is currentlt 14 to 15 weeks EGA and has preexisting DM now exacerbated by the . She denies ROM, or bleeding but does complain of severe and unrelenting R side/flank/back pain as she has had with prior kidney stones. She has associated N/V. On placement of a jackson catheter a stone was noted and obtained passing from the urethra. Allergies: none Medications : PNV - NPH and Reg Insulin prescribed today via clinic for DM not controlled with Metformin (1000 - 500 - 1000) but not uet started on the use of insulin due to this admission Medical/Social/Surgical/ and Obstetric histories are per the PN record. Lab: Laboratory Tests Test 03/16/21 15:15 03/16/21 15:46 03/16/21 16:25 03/16/21 17:00 Range/Units Sodium Level 138 135-145 MMOL/L Potassium Level 4.2 3.6-5.0 MMOL/L Chloride Level 106 98-107 MMOL/L Carbon Dioxide Level 19 L 21-32 MMOL/L Anion Gap 13 5-14 MMOL/L Blood Urea Nitrogen 10 7-18 MG/DL Creatinine 0.66 0.60-1.30 MG/DL Estimat Glomerular Filtration Rate > 60 BUN/Creatinine Ratio 15 Glucose Level 96 70-105 MG/DL Calcium Level 9.0 8.5-10.1 MG/DL Corrected Calcium 9.0 8.5-10.1 MG/DL Total Bilirubin 0.4 0.1-1.0 MG/DL Aspartate Amino Transf (AST/SGOT) 33 5-34 U/L Alanine Aminotransferase (ALT/SGPT) 21 0-55 U/L Alkaline Phosphatase 36 L 40-136 U/L Total Protein 7.9 6.4-8.2 GM/DL Albumin 4.0 3.2-4.5 GM/DL White Blood Count 6.9 4.3-11.0 10^3/uL Red Blood Count 4.56 3.80-5.11 10^6/uL Hemoglobin 13.2 11.5-16.0 g/dL Hematocrit 39 35-52 % Mean Corpuscular Volume 86 80-99 fL Mean Corpuscular Hemoglobin 29 25-34 pg Mean Corpuscular Hemoglobin Concent 34 32-36 g/dL Red Cell Distribution Width 13.9 10.0-14.5 % Platelet Count 137 130-400 10^3/uL Mean Platelet Volume 10.6 9.0-12.2 fL Immature Granulocyte % (Auto) 0 % Neutrophils (%) (Auto) 74 42-75 % Lymphocytes (%) (Auto) 19 12-44 % Monocytes (%) (Auto) 5 0-12 % Eosinophils (%) (Auto) 1 0-10 % Basophils (%) (Auto) 0 0-10 % Neutrophils # (Auto) 5.1 1.8-7.8 10^3/uL Lymphocytes # (Auto) 1.3 1.0-4.0 10^3/uL Monocytes # (Auto) 0.4 0.0-1.0 10^3/uL Eosinophils # (Auto) 0.1 0.0-0.3 10^3/uL Basophils # (Auto) 0.0 0.0-0.1 10^3/uL Immature Granulocyte # (Auto) 0.0 0.0-0.1 10^3/uL Urine Color YELLOW Urine Clarity CLEAR Urine pH 6.0 5-9 Urine Specific [place] 1.020 1.016-1.022 Urine Protein NEGATIVE NEGATIVE Urine Glucose (UA) NEGATIVE NEGATIVE Urine Ketones TRACE H NEGATIVE Urine Nitrite NEGATIVE NEGATIVE Urine Bilirubin NEGATIVE NEGATIVE Urine Urobilinogen 0.2 < = 1.0 MG/DL Urine Leukocyte Esterase NEGATIVE NEGATIVE Urine RBC (Auto) 3+ H NEGATIVE Urine RBC 5-10 H /HPF Urine WBC NONE /HPF Urine Squamous Epithelial Cells RARE /HPF Urine Crystals NONE /LPF Urine Bacteria TRACE /HPF Urine Casts NONE /LPF Urine Mucus SMALL H /LPF Urine Culture Indicated NO Physical exam; HEENT - wnl Neck : supple, no LA, no TM Cor: RR no Murmers Resp - CTAB Abd - b-9 No GRR Back: mild R CVAT Pelvic/Vag exam - deferred Renal Sono - performed and result reviewed - see report - no definitve for ureteral obstructio and with Bilat ureteral jets into the urinary bladder A/P Severe pain consistent with Nephro/ureteral lithiasis - Plan Obs for IVF, IV pain mgmt, sono Allergies and Home Medications Allergies Coded Allergies: NKANo Known Allergies (Verified Allergy, Unknown, 09/11/13) Home Medications Metformin HCl 500 Mg Tablet, 500 MG PO UD, (Reported) PATIENT TAKES AT NOON Last Action: Edited Metformin HCl 1,000 Mg Tablet, 1,000 MG PO UD, (Reported) TAKES 1,000MG IN AM AND 1,000MG IN PM. Last Action: Edited Patient Home Medication List Home Medication List Reviewed: Yes ADAN DÍAZ MD Mar 16, 2021 19:51
[2021-03-16] MEDS: fentaNYL INJ 100 MCG/2 ML AMP IVP PRN (21:40)
[2021-03-16 23:16] VITALS: BP 118/63
[2021-03-17] MEDS: fentaNYL INJ 100 MCG/2 ML AMP IVP PRN (04:36)
[2021-03-17] MEDS: LACTATED RINGERS 1,000 ML IV SCH (06:38)
--- NOTE | 2021-03-17 07:55 | Progress Note ---
Standard Progress Note Progress Notes/Assess & Plan Date Seen by a Provider: Mar 17, 2021 Time Seen by a Provider: 07:53 Progress/Assessment & Plan This patient continues to complain of right-sided pain right flank pain but also complains of a headache. She denies nausea vomiting has had no problems with diarrhea or constipation. She denies discharge or bleeding. Vital Signs Date Time Temp Pulse Resp B/P (MAP) Pulse Ox O2 Delivery O2 Flow Rate FiO2 03/16/21 23:16 37.0 77 18 118/63 (81) 95 Room Air 03/16/21 19:25 36.8 86 18 127/78 (94) 100 Room Air 03/16/21 18:35 36.3 82 18 126/64 (84) 98 Room Air 03/16/21 16:50 96 18 134/87 (103) 98 Room Air 03/16/21 13:33 35.8 99 18 98 Room Air 03/16/21 13:33 35.8 99 18 139/82 (101) 98 Room Air 03/16/21 13:33 35.8 99 18 98 Room Air I & O 03/17/21 07:00 Intake Total 2000 ml Output Total 700 ml Balance 1300 ml Vital signs are stable. Patient is afebrile. The abdomen is benign. Extremities show no clubbing or cyanosis. Assessment and plan hospital day 2 for patient at 14 to 15 weeks gestation admitted for ureteral colic due to stone. Her symptoms are somewhat improved but she continues to have significant pain requiring narcotics. We will continue observation and fluids and consider further evaluation if her symptoms do not improve Final Diagnosis Ureteral colic/nephrolithiasis ADAN DÍAZ MD Mar 17, 2021 07:55
[2021-03-17] MEDS ORDERED: oxyCODONE/APAP 5/325MG (PERCOCET 5) TABLET PO PRN (08:00)
[2021-03-17 09:52] VITALS: BP 121/66
== END 2021-03-17 10:05 | disposition home or self-care (01) ==
LOC: WSo 13:34 → LDRP 13:35 → WSo 14:00 → LDRP 14:00
PROVIDERS: ADMIT Obstetrics & Gynecology; ATTEND Obstetrics & Gynecology
DX: O26.832 Pregnancy related renal disease, second trimester (principal); N20.0 Calculus of kidney; O24.312 Unspecified pre-existing diabetes mellitus in pregnancy, second trimester; E11.9 Type 2 diabetes mellitus without complications; Z79.84 Long term (current) use of oral hypoglycemic drugs; Z3A.15 15 weeks gestation of pregnancy
CPT/HCPCS: 36415; 76770; 80053; 81000; 85025; 88300; 96361; 96374; 96375; 96376; 99211; G0378

== ENCOUNTER → 2021-05-12 | Outpatient (CLI) | payer OTHER ==
[2021-05-12 13:47] LABS: URINE CREATININE FOR RATIO 36 MG/DL (30-125); URINE PROTEIN FOR RATIO ONLY < 6 MG/DL (6-12)
== END ==
LOC: LAB 13:04
DX: O16.2 Unspecified maternal hypertension, second trimester (principal); Z3A.00 Weeks of gestation of pregnancy not specified
CPT/HCPCS: 82570; 84156

== ENCOUNTER 2021-07-29 08:59 | Outpatient (CLI) | payer OTHER ==
[2021-07-29 09:55] VITALS: BP 129/75
--- NOTE | 2021-07-30 07:53 | Physician Query-Final Dx ---
MAURICIO WICK 07/30/21 0753: Clinic Account Progress/Dx Physician Query: Please give diagnosis Please include # weeks gestation Date of Service Jul 29, 2021 at 08:59 ANGELES MORALES DO 08/04/21 0830: Clinic Account Progress/Dx DIAGNOSIS: Diagnosis non stress test advanced maternal age MAURICIO WICK Jul 30, 2021 07:53 ANGELES MORALES DO Aug 04, 2021 08:30
== END 2021-07-29 09:55 | disposition home or self-care (01) ==
LOC: LDRP 08:59 → WSo 08:59
PROVIDERS: ATTEND Obstetrics & Gynecology
DX: Z31.5 Encounter for procreative genetic counseling (principal)
CPT/HCPCS: 59025

== ENCOUNTER 2021-08-10 05:49 | Outpatient (CLI) | payer OTHER ==
[~2021-08-10] VITALS: Ht 167.7 cm; Wt 102.3 kg
[2021-08-13] MEDS ORDERED: INSU100V3 SQ (13:12)
[2021-08-13] MEDS ORDERED: ASPI-999 PO (13:12)
[2021-08-13] MEDS ORDERED: NPH,100V SQ ×2 (13:12)
[2021-08-13] MEDS ORDERED: PREN-8 PO (13:12)
== END 2021-08-13 13:16 | disposition home or self-care (01) ==
LOC: PREOP 05:49
PROVIDERS: ATTEND Obstetrics & Gynecology
DX: Z01.818 Encounter for other preprocedural examination (principal)

== ENCOUNTER 2021-08-24 04:08 | Inpatient (IN) | payer OTHER ==
[~2021-08-24] VITALS: Ht 167.7 cm; Wt 102.3 kg
[2021-08-24] VITALS (7 sets, daily range): BP systolic 113–145; BP diastolic 64–85
[~2021-08-24 04:08] MED LIST changes: +ASPI-999 PO; +INSU100V3 SQ; +NPH,100V SQ; +PREN-8 PO
[2021-08-24] MEDS ORDERED: CATHETER FLUSH 10 ML SYR IV PRN (10:15)
[2021-08-24] MEDS ORDERED: ceFAZolin INJECTION 2,000 MG in WATER (STERILE) FOR INJECTION 10 ML IV ONE (10:15)
[2021-08-24] MEDS ORDERED: CITRIC ACID/SOB CIT (BICITRA) 30 ML UDC PO ONE (10:15)
[2021-08-24] MEDS ORDERED: ceFAZolin 2 GM IV Premixed 50 ML IV ONE (10:15)
[2021-08-24] MEDS ORDERED: METOCLOPRAMIDE INJ 10 MG/2 ML (REGLAN) IV ONE (10:15)
[2021-08-24] MEDS ORDERED: D5 LR IV SOLUTION 1,000 ML IV SCH ×2 (10:15→14:00)
[2021-08-24] MEDS ORDERED: LACTATED RINGERS 1,000 ML IV PRN ×2 (10:15)
[2021-08-24] MEDS ORDERED: metroNIDAZOLE 500MG/100ML IVPB 100 ML IV ONE ×2 (10:15)
[2021-08-24] MEDS ORDERED: FAMOTIDINE 20MG/2ML IV (PEPCID) IV ONE (10:15)
[2021-08-24 11:15] LABS: BASOPHILS % (AUTO) 0 % (0-10); EOSINOPHILS # (AUTO) 0.1 10^3/uL (0.0-0.3); EOSINOPHILS % (AUTO) 2 % (0-10); HEMATOCRIT 39 % (35-52); HEMOGLOBIN 12.7 g/dL (11.5-16.0); LYMPHOCYTES # (AUTO) 1.5 10^3/uL (1.0-4.0); LYMPHOCYTES % (AUTO) 17 % (12-44); MEAN CORPUSCULAR HEMOGLOBIN 29 pg (25-34); MEAN CORPUSCULAR HGB CONC 33 g/dL (32-36); MEAN CORPUSCULAR VOLUME 87 fL (80-99); MEAN PLATELET VOLUME 11.1 fL (9.0-12.2); MONOCYTES # (AUTO) 0.5 10^3/uL (0.0-1.0); MONOCYTES % (AUTO) 6 % (0-12); NEUTROPHILS # (AUTO) 6.6 10^3/uL (1.8-7.8); NEUTROPHILS % (AUTO) 74 % (42-75); PLATELET COUNT 166 10^3/uL (130-400); WHITE BLOOD COUNT 8.9 10^3/uL (4.3-11.0)
[2021-08-24] MEDS ORDERED: ceFAZolin 2 GM IV Premixed 0 ML ONE (11:33)
[2021-08-24] MEDS ORDERED: ceFAZolin INJECTION 2,000 MG ONE (11:35)
[2021-08-24] MEDS ORDERED: WATER (STERILE) FOR INJECTION 20 ML ONE (11:36)
[2021-08-24] MEDS ORDERED: OXYTOCIN PRE-MIX DRIP 500 ML IV ONE ×3 (12:13→13:48)
[2021-08-24] MEDS ORDERED: BUPIVACAINE 0.5% 30 ML (SENSORCAINE) VIAL ONE (12:13)
[2021-08-24] MEDS ORDERED: fentaNYL INJ 100 MCG/2 ML AMP ONE (12:13)
[2021-08-24] MEDS ORDERED: ONDANSETRON 4 MG/2 ML (SDV) Z0FRAN ONE (12:32)
[2021-08-24] MEDS: KETOROLAC 30 MG/ML VIAL IVP SCH ×2 (12:46→19:25)
[2021-08-24] MEDS ORDERED: KETOROLAC 30 MG/ML VIAL ONE (12:49)
[2021-08-24] MEDS ORDERED: TETANUS,DIPTH,PERTUSS P/F (BOOSTRIX) 0.5 ML VIAL IM ONE (14:00)
[2021-08-24] MEDS ORDERED: ONDANSETRON 4 MG/2 ML (SDV) Z0FRAN IVP PRN (14:00)
[2021-08-24] MEDS ORDERED: MEASLES,MUMPS,RUBELLA 1 EA INJ SC ONE (14:00)
[2021-08-24] MEDS ORDERED: fentaNYL INJ 100 MCG/2 ML AMP IVP PRN (14:00)
[2021-08-24] MEDS ORDERED: OXYTOCIN PRE-MIX DRIP 500 ML IV SCH (14:00)
[2021-08-24] MEDS: oxyCODONE/APAP 10/325MG (PERCOCET 10) TABLET PO PRN ×2 (15:08→21:49)
--- NOTE | 2021-08-24 19:43 | OPERATIVE REPORT ---
DATE OF SERVICE: 08/24/2021 PREOPERATIVE DIAGNOSES: Term at 37+ weeks' gestation with poorly controlled diabetes and with PIH and previous . POSTOPERATIVE DIAGNOSES: Term at 37+ weeks' gestation with poorly controlled diabetes and with PIH and previous . OPERATIVE PROCEDURE: Repeat low transverse delivery of a viable female infant with Apgars of 8 and 8 at 1 and 5 minutes respectively, weight of 6 pounds 7 ounces, time of 12:44 and a cord blood pH of 7.30. OPERATIVE DESCRIPTION: With the patient in the supine position under satisfactory spinal analgesia, she was prepped and draped in the usual fashion for abdominal surgery. Mehta catheter was placed in the urinary bladder. A repeat Pfannenstiel incision was made through the skin with scalpel and the patient's was abdomen entered in the usual manner. Bladder retractor was placed in position and a clean scalpel used to make a 4 cm hysterotomy incision transversely across the lower uterine segment that was extended bluntly as well was extended bluntly. A clean knife was used to make a 4 cm hysterotomy incision transversely across the lower uterine segment. Clear fluid was released on hysterotomy. The incision was extended bluntly and then a vigorous viable female was delivered via the uterine incision in the usual manner. The was bulb suctioned on delivery of the head and again on completion of delivery. The umbilical cord was doubly clamped and cut and the infant passed to the pediatric nurse in attendance for delivery. Cord bloods were obtained. The placenta delivered spontaneously Resendiz. It was normal with a 3-vessel cord. The uterus was exteriorized, the interior wiped clean with a wet laparotomy sponge. Uterine incision was then closed with a running locked suture of 2-0 Vicryl. Hemostasis was complete. The uterus was returned to the abdominal cavity. All blood clot and debris removed from the abdominal cavity. With sponge and needle counts correct and hemostasis assured, the anterior parietal peritoneum was closed with a running suture of 2-0 Vicryl. Rectus muscles were closed with that suture as well. The rectus fascia was closed with that suture. Subcutaneous tissue was closed with that suture and the skin was stapled. Sponge and needle counts were correct on completion of the procedure. Blood loss was around 200 mL. The patient tolerated the procedure well and was transferred to the recovery room in stable condition. The infant had been taken stable to the full term nursery under the care of the pediatric nurse. Job ID: [id number] DocumentID: [id number] Dictated Date: 08/24/2021 15:20:20 [employer] Product Cutting Machine Operator Date: 08/24/2021 19:42:12 Dictated By: ADAN DÍAZ MD
[2021-08-24] MEDS: DOCUSATE SODIUM 100 MG (COLACE) CAP PO SCH (21:06)
[2021-08-25] MEDS: KETOROLAC 30 MG/ML VIAL IVP SCH (02:02)
[2021-08-25 02:04] VITALS: BP 123/77
[2021-08-25] MEDS: oxyCODONE/APAP 10/325MG (PERCOCET 10) TABLET PO PRN ×4 (04:10→21:47)
[2021-08-25 05:39] VITALS: BP 120/84
[2021-08-25] MEDS: DOCUSATE SODIUM 100 MG (COLACE) CAP PO SCH ×2 (08:08→21:10)
[2021-08-25] MEDS: IBUPROFEN 800 MG (MOTRIN) TAB PO SCH ×3 (08:09→21:10)
[2021-08-25 08:13] VITALS: BP 129/80
[2021-08-25 11:49] VITALS: BP 156/88
--- NOTE | 2021-08-25 13:30 | Anesthesia-Regional Post-Op ---
Regional Patient Condition Mental Status: Alert, Oriented x3 Circulation: Same as Pre-Op Headache: Absent Sensation: Full Recovery Motor Block: Absent Post Op Complications Complications None Follow Up Care/Instructions Patient Instructions None needed. Anesthesia/Patient Condition Patient is doing well, no complaints, stable vital signs, no apparent adverse anesthesia problems. No complications reported per nursing. JULIANNE FAYE CRNA Aug 25, 2021 13:29
--- NOTE | 2021-08-25 13:46 | Progress Note ---
Standard Progress Note Progress Notes/Assess & Plan Date Seen by a Provider: Aug 25, 2021 Time Seen by a Provider: 08:15 Progress/Assessment & Plan This patient is without complaint. She is ambulating, voiding, tolerating oral intake well and has good pain control. Her baby was transferred to [facility]. Patient understands that her baby is doing quite well at this time repair Vital Signs Date Time Temp Pulse Resp B/P (MAP) Pulse Ox O2 Delivery O2 Flow Rate FiO2 08/25/21 11:49 36.2 78 17 156/88 (110) 98 Room Air 08/25/21 08:13 36.2 85 15 129/80 (96) 97 Room Air 08/25/21 05:39 35.9 98 18 120/84 (96) 97 Room Air 08/25/21 02:04 36.2 86 18 123/77 (92) 97 Room Air 08/24/21 21:48 36.3 84 18 140/76 (97) 97 Room Air 08/24/21 18:12 36.3 113 20 145/85 (105) 99 Room Air 08/24/21 16:03 37.1 81 18 124/79 (94) 100 Room Air 08/24/21 16:03 Room Air 08/24/21 14:05 37.0 18 121/74 (90) 100 Room Air 08/24/21 14:05 Room Air I & O 08/25/21 07:00 Intake Total 2610 ml Output Total 875 ml Balance 1735 ml Vital signs are stable. Patient is afebrile. The abdomen is benign. The surgical incision is clean dry and intact. Extremities show no clubbing or cyanosis. There is no Homans' sign. Assessment and plan Postoperative day #1 status post repeat delivery at 37+ weeks gestation. Patient is doing well and will have routine convalescent care. We will consider discharge home tomorrow Final Diagnosis 37-week repeat ADAN DÍAZ MD Aug 25, 2021 13:46
[2021-08-25] MEDS ORDERED: OXYC1TAB12 PO (13:49)
[2021-08-25] MEDS ORDERED: IBUP-1780 PO (13:49)
[2021-08-25] MEDS ORDERED: DOCU100C37 PO (13:49)
--- NOTE | 2021-08-25 13:51 | Discharge Inst-Surgical ---
Discharge Inst-Surgical Depart Medication/Instructions New, Converted or Re-Newed RX: Transmitted to Pharmacy Consults/Follow Up Patient Instructions: As directed Orders & Referrals Follow Up Appt: RTC 1 week for incision check. Call to make follow up appt. for patient in 4 weeks. Wound Care: Remove virginia, apply benzoin and steri strips. Activity Per routine post instructions. Diet as tolerated Patient may shower or tub bathe as desired. Continue home meds Activity Activity as Tolerated: No Diet Discharge Diet: No Restrictions ADAN DÍAZ MD Aug 25, 2021 13:51
--- NOTE | 2021-08-25 13:53 | History & Physical ---
History and Physical Date Seen by Provider: Aug 24, 2021 Time Seen by Provider: 12:10 This patient is a 45-year-old 6 para 5 female currently at 37+ weeks gestation. Her is complicated by difficult to control insulin requiring diabetes. She also has persistent PIH with severe exacerbations of her blood pressure. She has been followed through this by Dr. Gomez highway engineering teacher at [facility] who recommended delivery at 37 weeks gestation. Patient presents now for repeat scheduled delivery Patient denies vaginal discharge or bleeding. She has occasional contractions does feel baby moving. Allergies are none Medications are vitamins and a myriad of insulin Medical social and surgical history is all per the antepartum record HEENT exam is normal Neck is supple no lymphadenopathy no thyromegaly Abdomen is gravid soft nontender nondistended Extremities show no clubbing cyanosis. There is no Homans' sign. Pelvic exam was deferred Assessment and plan 37+ weeks gestation in a patient with 5 previous C- sections and with diabetes pre-existing but exacerbated by and requiring extensive insulin therapy. Patient also has severe PIH. Patient is admitted now for repeat delivery 37-week repeat Allergies and Home Medications Allergies Coded Allergies: NKANo Known Allergies (Verified Allergy, Unknown, 09/11/13) Patient Home Medication List Home Medication List Reviewed: Yes Aspirin (Aspirin) 81 Mg Tab.chew, 81 MG PO DAILY, (Reported) Entered as Reported by: JESSICA BASSETT on 08/13/211311 Last Action: Reviewed Docusate Sodium (Docusate Sodium) 100 Mg Capsule, 100 MG PO BID Prescribed by: ADAN SUTHERLAND on 08/25/21 1349 Ibuprofen (Ibuprofen) 800 Mg Tablet, 800 MG PO Q6HR Prescribed by: ADAN SUTHERLAND on 08/25/21 1349 Insulin NPH Human Isophane (Humulin N) 100 Unit/1 Ml Vial, 70 UNITS SQ DAILY, (Reported) Entered as Reported by: JESSICA BASSETT on 08/13/211311 Last Action: Reviewed Insulin NPH Human Isophane (Humulin N) 100 Unit/1 Ml Vial, 74 UNIT SQ HS, (Reported) Entered as Reported by: JESSICA BASSETT on 08/13/211311 Last Action: Reviewed Insulin Regular, Human (Humulin R) 1,000 Units/10 Ml Soln, 16-34 UNIT SQ TIDAC, (Reported) Entered as Reported by: JESSICA BASSETT on 08/13/21 131 Last Action: Reviewed Oxycodone HCl/Acetaminophen (Percocet 10-325 mg Tablet) 1 Each Tablet, 1 TAB PO Q4HR PRN for Pain Prescribed by: ADAN SUTHERLAND on 08/25/21 1350 Vit W-Ca,Fe,FA(<1 mg) ( Formula) 1 Each Tablet, 1 EACH PO DAILY, (Reported) Entered as Reported by: JESSICA BASSETT on 08/13/211311 Last Action: Reviewed ADAN DÍAZ MD Aug 25, 2021 13:53
[2021-08-25 15:23] VITALS: BP 135/76
[2021-08-25 21:09] VITALS: BP 133/73
[2021-08-26 03:15] VITALS: BP 108/57
[2021-08-26] MEDS: IBUPROFEN 800 MG (MOTRIN) TAB PO SCH ×2 (03:17→11:01)
[2021-08-26] MEDS: oxyCODONE/APAP 10/325MG (PERCOCET 10) TABLET PO PRN (07:29)
[2021-08-26] MEDS: DOCUSATE SODIUM 100 MG (COLACE) CAP PO SCH (07:30)
[2021-08-26 07:31] VITALS: BP 158/90
--- NOTE | 2021-08-26 07:55 | Progress Note ---
Standard Progress Note Progress Notes/Assess & Plan Date Seen by a Provider: Aug 26, 2021 Time Seen by a Provider: 07:00 Progress/Assessment & Plan This patient is without complaint. She is ambulating, voiding, tolerating oral intake well and has good pain control. Her baby was transferred to [facility]. Patient understands that her baby is doing quite well at this time repair Vital Signs Date Time Temp Pulse Resp B/P (MAP) Pulse Ox O2 Delivery O2 Flow Rate FiO2 08/25/21 11:49 36.2 78 17 156/88 (110) 98 Room Air 08/25/21 08:13 36.2 85 15 129/80 (96) 97 Room Air 08/25/21 05:39 35.9 98 18 120/84 (96) 97 Room Air 08/25/21 02:04 36.2 86 18 123/77 (92) 97 Room Air 08/24/21 21:48 36.3 84 18 140/76 (97) 97 Room Air 08/24/21 18:12 36.3 113 20 145/85 (105) 99 Room Air 08/24/21 16:03 37.1 81 18 124/79 (94) 100 Room Air 08/24/21 16:03 Room Air 08/24/21 14:05 37.0 18 121/74 (90) 100 Room Air 08/24/21 14:05 Room Air I & O 08/25/21 07:00 Intake Total 2610 ml Output Total 875 ml Balance 1735 ml Vital signs are stable. Patient is afebrile. The abdomen is benign. The surgical incision is clean dry and intact. Extremities show no clubbing or cyanosis. There is no Homans' sign. Assessment and plan Postoperative day #1 status post repeat delivery at 37+ weeks gestation. Patient is doing well and will have routine convalescent care. We will consider discharge home tomorrow August 26, 2021 This patient is without complaint. She is ambulating, voiding, tolerating oral intake well and has good pain control. Vital Signs Date Time Temp Pulse Resp B/P (MAP) Pulse Ox O2 Delivery O2 Flow Rate FiO2 08/26/21 07:31 36.0 86 18 158/90 (112) 98 Room Air 08/26/21 03:15 35.7 84 18 108/57 (74) 97 Room Air 08/25/21 21:09 35.9 94 18 133/73 (93) 96 Room Air 08/25/21 15:23 36.1 83 16 135/76 (95) 97 Room Air 08/25/21 11:49 36.2 78 17 156/88 (110) 98 Room Air 08/25/21 08:13 36.2 85 15 129/80 (96) 97 Room Air Vital signs are stable. Patient is afebrile. Fundus is firm below the umbilicus and nontender. The surgical incision is clean dry and intact. Extremities show no clubbing or cyanosis. There is no Homans' sign. Assessment and plan Postoperative day #2 status post repeat delivery doing well. Plan is for discharge home with follow-up in clinic Final Diagnosis 37-week repeat delivery ADAN DÍAZ MD Aug 26, 2021 07:55
[2021-08-26 12:19] VITALS: BP 158/90
== END 2021-08-26 12:19 | disposition home or self-care (01) | DRG 786 ==
LOC: LDRP 09:59
PROVIDERS: ADMIT Obstetrics & Gynecology; ATTEND Obstetrics & Gynecology
PROC: 10D00Z1 Extraction of Products of Conception, Low, Open Approach (ICD-10-PCS; principal; 2021-08-24 12:14)
DX: O34.211 Maternal care for low transverse scar from previous cesarean delivery (principal); O24.12 Pre-existing type 2 diabetes mellitus, in childbirth; E11.65 Type 2 diabetes mellitus with hyperglycemia; O13.4 Gestational [pregnancy-induced] hypertension without significant proteinuria, complicating childbirth; Z79.82 Long term (current) use of aspirin; Z37.0 Single live birth; Z3A.37 37 weeks gestation of pregnancy; Z79.4 Long term (current) use of insulin
CPT/HCPCS: 36415; 82947; 85025; 86850; 86900; 86901; 94664